=== PATIENT | female | born 1980 | race Hispanic/Latino ===

== ENCOUNTER 2019-10-27 16:30 | Outpatient (CLI) | payer OTHER, SELFPAY ==
--- NOTE | ~2019-10-27 | XR_ITS ---
EXAMINATION: XR chest 2V DATE: 10/27/2019 16:43 INDICATION: Cough. Chest congestion. TECHNIQUE: Frontal and lateral views of the chest were obtained. COMPARISON: CT abdomen and pelvis 01/16/2016 FINDINGS: There is mild atelectasis at left lung base. No pleural effusion or pneumothorax. The heart size is normal. IMPRESSION: 1. Mild atelectasis at left lung base. Reviewed, dictated and finalized at location A.
== END 2019-10-27 16:31 | disposition home or self-care (01) ==
LOC: ANHBWCIMG 16:34
PROVIDERS: PCP Family Medicine; Visit Provider Family Medicine
DX: R05 Cough (principal); R91.8 Other nonspecific abnormal finding of lung field
CPT/HCPCS: 71046

== ENCOUNTER → 2020-02-07 16:19 | Outpatient (CLI) | payer OTHER, SELFPAY ==
--- NOTE | ~2020-02-07 | XR_ITS ---
XR chest 2V DATE: 02/07/2020 16:37 INDICATION: Chest pain TECHNIQUE: PA and lateral views COMPARISON: 10/27/2019 PA and lateral chest FINDINGS: Normal heart size. No hilar or mediastinal enlargement. No pulmonary infiltrate or consolid ation, pleural effusion or pulmonary vascular congestion or pneumothorax. Included skeletal structures are unremarkable. IMPRESSION: No active cardiopulmonary disease Reviewed, dictated and finalized at location A.
== END ==
PROVIDERS: PCP Family Medicine; Visit Provider Family Medicine
DX: R07.89 Other chest pain (principal)
CPT/HCPCS: 71046

== ENCOUNTER 2020-04-20 14:36 | Outpatient (CLI) | payer OTHER, SELFPAY ==
[2020-04-23 21:32] LABS: Immunoglobulin E 3 kU/L (<=114)
[2020-04-24 15:33] LABS: Immunoglobulin G, Serum 1158 mg/dL (600-1640); Immunoglobulin G1 513 mg/dL (382-929); Immunoglobulin G2 434 mg/dL (241-700); Immunoglobulin G3 80 mg/dL (22-178); Immunoglobulin G4 27.8 mg/dL (4.0-86.0)
--- NOTE | 2020-05-01 12:52 | WPDPFTINT ---
PFT Interpretation PFT Interpretation: DOS: 04/20/2020 REQUESTING: Dr Marie REASON FOR TESTING: shortness of breath PULMONARY FUNCTION TESTS Results are reliable. Spirometry: FEV1 111%, FVC 111 %, normal FEV1%. [id number]% is 79%. There is no significant change after bronchodilator Lung volumes: TLC 122% mild hyperinflation. RV 124% mild air trapping. Normal airway resistance. Diffusion: DLCO 101% normal. Flow volume loop: Normal. IMPRESSION: Normal spirometry, mild hyperinflation and air trapping which are consistent with an obstructive process, normal diffusion. No change with bronchodilator. Yun Marie MD
--- NOTE | 2020-05-01 12:56 | WPDSIXMINUTE ---
Six Minute Walk Six Minute Walk: DOS: 04/20/2020 REQUESTING: Dr Marie REASON FOR TESTING: shortness of breath SIX MINUTE WALK This test was conducted per ATS guidelines. The initial saturation was 98% and pulse 74. The patient walked for 6 minutes without stopping, for a distance of 1400 ft/ 426 m. Final saturation 99%. Pulse was 93. IMPRESSION: Normal walk study without need for supplemental oxygen with exertion.
== END 2020-04-20 14:37 | disposition home or self-care (01) ==
PROVIDERS: PCP Family Medicine; Visit Provider Internal Medicine Critical Care Medicine
DX: J45.909 Unspecified asthma, uncomplicated (principal); B99.9 Unspecified infectious disease; R06.02 Shortness of breath
CPT/HCPCS: 36415; 82784; 82785; 82787; 94060; 94618; 94726; 94729; 95012

== ENCOUNTER 2021-06-03 15:28 | Outpatient (CLI) | payer OTHER, SELFPAY ==
[2021-06-03 15:47] LABS: Basophils Percent Auto 0.4 % (0.2-1.2); Eosinophils Absolute Auto 0.1 K/mm3 (0-0.3); Eosinophils Percent Auto 0.8 % (0-4.4); Hematocrit 35.5 % (37.0-47.0); Hemoglobin 10.9 g/dL (12.0-15.0); Immature Granulocyte Absolute 0.02 K/mm3 (0.00-0.031); Immature Granulocyte Percent A 0.3 % (0-0.5); Lymphocytes Absolute Auto 2.79 K/mm3 (0.9-3.2); Lymphocytes Percent Auto 36.8 % (18.3-44.2); Mean Corpuscular HGB Conc 30.7 g/dl (32-36); Mean Corpuscular Hemoglobin 23.9 pg (26-34); Mean Corpuscular Volume 77.7 fl (80-100); Mean Platelet Volume 8.7 fl (7.4-10.4); Monocytes Absolute Auto 0.5 K/mm3 (0.1-0.6); Monocytes Percent Auto 6.9 % (2.6-8.5); Neutrophils Absolute Auto 4.2 K/mm3 (1.3-6.7); Neutrophils Percent Auto 54.8 % (45.5-73.1); Platelet Count Result 484 k/mm3 (150-375); Red Blood Count 4.57 M/mm3 (4.2-5.4); Red Cell Distribution Width 15.6 % (11.5-14.5); White Blood Count 7.6 K/mm3 (4.5-10.0)
[2021-06-03 16:39] LABS: Anion Gap 11 mmol/L (8-16); Blood Urea Nitrogen 14 mg/dL (7-17); Carbon Dioxide 23 mmol/L (22-30); Chloride 105 mmol/L (98-107); Estimated Glomerular Filt Rate > 60; Glucose 96 mg/dL (65-110); Potassium 3.7 mmol/L (3.4-5.0); Sodium 139 mmol/L (137-145)
[2021-06-03 17:38] LABS: Iron 136 ug/dL (37-170)
[2021-06-03 17:47] LABS: Percent Iron Saturation 37 % (20-50)
[2021-06-03 18:14] LABS: Ferritin 8.18 ng/mL (6.24-137)
[2021-06-03 18:15] LABS: Folic Acid 9.1 ng/mL (2.76->20); Vitamin B12 > 1000.0 pg/mL (239-931)
== END 2021-06-03 15:29 | disposition home or self-care (01) ==
LOC: ANHLAB 15:29
PROVIDERS: Visit Provider Internal Medicine Hematology & Oncology
DX: D63.8 Anemia in other chronic diseases classified elsewhere (principal)
CPT/HCPCS: 36415; 80048; 82607; 82728; 82746; 83540; 83550; 85025

== ENCOUNTER → 2022-12-30 08:04 | Outpatient (CLI) | payer OTHER, SELFPAY ==
--- NOTE | ~2022-12-30 | US_ITS ---
EXAMINATION: US pelvic complete DATE: 12/30/2022 08:32 INDICATION: Excessive and frequent menstruation. Comparison:No prior studies for comparison. TECHNIQUE: Multiple transabdominal sonographic images of the pelvis performed. FINDINGS: The uterus measures 10.5 x 4.8 x 6.4 cm. There is an IUD in the endometrium. The endometria l complex measures 7 mm. The right ovary measures 3.8 x 2.2 x 2.8 cm and the left ovary measures 2.8 x 1.8 x 2.8 cm. There ar e small follicles in each ovary. Normal doppler signal in both ovaries. There is no free fluid in the pelvis. There are no abnormal masses seen on either side. IMPRESSION: 1. Enlarged uterus. Reviewed, dictated and finalized at location L. IMPRESSION: 1. Enlarged uterus.
== END ==
PROVIDERS: Visit Provider Family Medicine
DX: N92.0 Excessive and frequent menstruation with regular cycle (principal); N85.2 Hypertrophy of uterus
CPT/HCPCS: 76856

== ENCOUNTER → 2023-03-09 07:09 | Outpatient (CLI) | payer OTHER, SELFPAY ==
--- NOTE | ~2023-03-09 | MM_ITS ---
EXAMINATION: MM screening elizabeth BI w haider HISTORY: Screening mammogram, family history of breast cancer in her sister. TECHNIQUE: Craniocaudal and mediolateral oblique 3-D tomosynthesis images were obtained and synthetic 2-D images were generated. CAD analysis was submitted and interpreted. COMPARISON: None, baseline BREAST PARENCHYMAL COMPOSITION: The breasts are heterogeneously dense, which may obscure small masses . FINDINGS: RIGHT BREAST: There is architectural distortion in the posterior third of the outer breast 5.5 cm fro m the nipple. LEFT BREAST: No suspicious mass, calcification, or architectural distortion are identified to suggest malignancy. IMPRESSION: 1. Right breast architectural distortion. 2. Additional mammographic views and possible breast ultrasound are recommended. BI-RADS Category 0: Incomplete: Needs additional imaging evaluation. Reviewed, dictated and finalized at location A. IMPRESSION: 1. Right breast architectural distortion. 2. Additional mammographic views and possible breast ultrasound are recommended . BI-RADS Category 0: Incomplete: Needs additional imaging evaluation.
== END ==
PROVIDERS: PCP Family Medicine; Visit Provider Family Medicine
DX: Z12.31 Encounter for screening mammogram for malignant neoplasm of breast (principal); R92.8 Other abnormal and inconclusive findings on diagnostic imaging of breast
CPT/HCPCS: 77063; 77067

== ENCOUNTER → 2023-04-14 07:51 | Outpatient (CLI) | payer OTHER, SELFPAY ==
--- NOTE | ~2023-04-14 | MM_ITS ---
Corrected Report Order # associated 04/15/2023 SLJ This report was recreated on 04/15/2023. Original report was signed by Som Tong M.D. on 04/14/2023 9:17 CDT EXAMINATION: MM diagnostic elizabeth RT w haider; US breast RT limited HISTORY: Right breast architectural distortion on screening mammogram TECHNIQUE: Additional 3-D tomosynthesis images of the right breast were performed and synthetic 2-D images were generated. CAD analysis was submitted and interpreted. High resolution limited right breast ultrasound was performed. COMPARISON: 03/09/2023 BREAST PARENCHYMAL COMPOSITION: The breasts are heterogeneously dense, which may obscure small masses. FINDINGS: MAMMOGRAPHIC FINDINGS: There is an area of persistent architectural distortion in the posterior third of the lower-outer breast at the 8:00 location, 9 cm from the nipple. No suspicious calcification or definite associated mass are identified. ULTRASOUND: There is no evidence of focal abnormal solid or cystic mass in the vicinity of the mammographic finding in question. IMPRESSION: 1. Persistent right breast architectural distortion without sonographic correlate. 2. Tomosynthesis guided biopsy is recommended. BI-RADS category 4, suspicious findings. Reviewed, dictated and finalized at location A. MTDD IMPRESSION: 1. Persistent right breast architectural distortion without sonographic correla te. 2. Tomosynthesis guided biopsy is recommended. BI-RADS category 4, suspicious findings.
== END ==
PROVIDERS: PCP Family Medicine; Visit Provider Family Medicine
DX: R92.8 Other abnormal and inconclusive findings on diagnostic imaging of breast (principal)
CPT/HCPCS: 76642; 77061; 77065; G0279

== ENCOUNTER 2023-04-28 15:46 | Outpatient (CLI) | payer OTHER, SELFPAY ==
[2023-04-28 15:58] LABS: Basophils Absolute Auto 0.1 K/mm3 (0.0-0.1); Basophils Percent Auto 0.5 % (0.2-1.2); Eosinophils Absolute Auto 0.1 K/mm3 (0-0.3); Eosinophils Percent Auto 0.6 % (0-4.4); Hematocrit 42.7 % (37.0-47.0); Hemoglobin 13.9 g/dL (12.0-15.0); Immature Granulocyte Absolute 0.02 K/mm3 (0.00-0.031); Immature Granulocyte Percent A 0.2 % (0-0.5); Lymphocytes Absolute Auto 3.28 K/mm3 (0.9-3.2); Mean Corpuscular HGB Conc 32.6 g/dl (32-36); Mean Corpuscular Hemoglobin 26.9 pg (26-34); Mean Corpuscular Volume 82.6 fl (80-100); Mean Platelet Volume 8.8 fl (7.4-10.4); Monocytes Absolute Auto 0.6 K/mm3 (0.1-0.6); Monocytes Percent Auto 5.9 % (2.6-8.5); Neutrophils Absolute Auto 6.6 K/mm3 (1.3-6.7); Neutrophils Percent Auto 61.8 % (45.5-73.1); Platelet Count Result 413 k/mm3 (150-375); Red Blood Count 5.17 M/mm3 (4.2-5.4); Red Cell Distribution Width 13.6 % (11.5-14.5); White Blood Count 10.6 K/mm3 (4.5-10.0)
[2023-04-28 16:34] LABS: Iron 63 ug/dL (37-170)
[2023-04-28 16:43] LABS: Percent Iron Saturation 18 % (20-50)
[2023-04-28 17:43] LABS: Folic Acid 9.6 ng/mL (2.76->20)
== END 2023-04-28 15:47 | disposition home or self-care (01) ==
LOC: ANHLAB 15:48
PROVIDERS: PCP Family Medicine; Visit Provider Internal Medicine Hematology & Oncology
DX: D64.9 Anemia, unspecified (principal)
CPT/HCPCS: 36415; 82607; 82728; 82746; 83540; 83550; 85025

== ENCOUNTER 2023-07-07 13:47 | Outpatient (CLI) | payer OTHER, SELFPAY ==
--- NOTE | ~2023-07-07 | MR_ITS ---
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 No sonog raphic correlate is identified. TECHNIQUE: MRI of the breasts perform using standard protocol pre-and post IV contrast with the follo wing sequences: Axial T2 STIR, axial T1, axial vibrant T1 with fat suppression precontrast and multip hasic postcontrast. 20 cc of MultiHance administered intravenously. COMPARISON: Comparison to multiple prior studies sequentially, with oldest reviewed study dated 03/09. FINDINGS: There are no abnormalities on the precontrast sequences. There is moderate background paren chymal enhancement. In the lower outer quadrant of the right breast at 8:00, middle third there is an irregular shaped area of nonmasslike enhancement with rapid washout, measuring 2 x 1.7 x 1.5 cm. The re are additional scattered areas of nonmass-like enhancement throughout the right breast, likely casey kground. There are normal-appearing right axillary lymph nodes. No suspicious axillary or internal ma mmary lymph nodes. LEFT BREAST: No signal abnormalities on precontrast sequences. There is moderate background parenchy mal enhancement. At 1:00 in the upper outer quadrant anteriorly there is an 11 x 9 x 6 mm irregular s haped mass. In the lower outer quadrant of the left breast at 6:00, middle third there is a 9 x 7 x 1 1 mm mass with rapid washout kinetics. In the lower inner quadrant of the left breast at 9:00 anterio rly there is an 8 mm mass with rapid washout. In the lower inner quadrant of the left breast at 6:00 anteriorly there is a 7 mm mass with rapid washout. No at 8:00 in the lower inner quadrant anteriorly there is a 6 mm mass with rapid washout. IMPRESSION: 1: Right breast: Irregular shaped nonmasslike enhancement at 8:00, middle third measuring up to 2 cm . 2: Left breast: Multiple abnormally enhancing left breast masses described above in greater detail. Recommendation: Recommend diagnostic bilateral mammogram with complete bilateral breast ultrasound. BI-RADS CATEGORY 0 - INCOMPLETE STUDY, NEED ADDITIONAL IMAGING EVALUATION. Reviewed, dictated and finalized at location B. E STACKER HAND IMPRESSION: 1: Right breast: Irregular shaped nonmasslike enhancement at 8:00, middle thir d measuring up to 2 cm. 2: Left breast: Multiple abnormally enhancing left breast masses described abo ve in greater detail. Recommendation: Recommend diagnostic bilateral mammogram with complete bilatera l breast ultrasound. BI-RADS CATEGORY 0 - INCOMPLETE STUDY, NEED ADDITIONAL IMAGING EVALUATION.
== END 2023-07-07 13:48 | disposition home or self-care (01) ==
PROVIDERS: Visit Provider Physician Assistant Surgical
DX: R92.8 Other abnormal and inconclusive findings on diagnostic imaging of breast (principal); R92.2 Inconclusive mammogram
CPT/HCPCS: 77049; A9577; C8908

== ENCOUNTER → 2023-07-29 07:55 | Outpatient (CLI) | payer OTHER, SELFPAY ==
--- NOTE | ~2023-07-29 | MMUS_ITS ---
EXAMINATION: US breast BI complete, MM diagnostic elizabeth BI w haidre HISTORY: History of bilateral breast masses seen on MRI examination. Previous benign right breast bio psy. TECHNIQUE: Additional 3-D tomosynthesis images of the breasts were performed and synthetic 2-D images were generated. CAD analysis was submitted and interpreted. High resolution bilateral complete breas t ultrasound was performed. COMPARISON: Comparison to multiple prior studies sequentially, with oldest reviewed study dated 03/09. BREAST PARENCHYMAL COMPOSITION: Breast composed of scattered areas of fibroglandular density FINDINGS: MAMMOGRAPHIC FINDINGS: Right breast: There is a persistent mass in the lower outer quadrant of the right breast, at the junc tion of the middle-posterior third of the breast, with surrounding architectural distortion. There is an associated tissue marker presumably from previous recent benign biopsy. No other masses, calcific ations or suspicious architectural distortion are seen. Left breast: There is a small 6 mm mass in the slightly upper inner quadrant of the left breast, midd le third with circumscribed margins. No other suspicious masses or architectural distortion are seen. ULTRASOUND: Complete bilateral US of all 4 quadrants of the breasts and retroareolar region was reviewed. Right breast: At 3:00 near the areola there is a 3 mm cyst. At 6:00, 5 cm from the nipple, there is a 6 mm cyst. At 8:00, 6 cm from the nipple there is a slightly irregular shaped hypoechoic mass with h eterogeneous internal echotexture measuring 6 x 6 x 8 mm. No significant posterior features or diversity intern al vascularity. At 10:00, 4 cm from the nipple there is a 3 mm cyst. At 11:00, 3 cm from the nipple t here is a lobulated hypoechoic 5 mm mass with mixed posterior attenuation and no internal vascularity . Left breast: At 2:00, 6 cm from the nipple there is a 5 mm septated cyst. At 11:00, 3 cm from the nip ple there is a 3 mm cyst. Near the nipple there is an oval hypoechoic mass measuring 5 mm,, not well characterized due to surrounding echogenic soft tissue. IMPRESSION: 1. Right breast: Ultrasound-guided right breast biopsy of 8 mm mass at 8:00, 6 cm from the nipple. Th is likely corresponds to the abnormally enhancing mass seen on recent MRI. Additionally, ultrasound-g uided biopsy of lobulated hypoechoic 5 mm mass at 11:00, 3 cm from the nipple in the right breast is recommended. BI-RADS Category 4 2. Left breast: Poorly defined hypoechoic 5 mm mass of the left breast near the nipple. This likely c orresponds to mass seen on MRI located at the 1:00 position anteriorly. MRI guided biopsy of this mas s recommended given the masses not well characterized or visualized by ultrasound or mammography. BI- RADS Category 4. Reviewed, dictated and finalized at location A. SER AUTOMATIC IMPRESSION: 1. Right breast: Ultrasound-guided right breast biopsy of 8 mm mass at 8:00, 6 cm from the nipple. This likely corresponds to the abnormally enhancing mass se en on recent MRI. Additionally, ultrasound-guided biopsy of lobulated hypoechoi c 5 mm mass at 11:00, 3 cm from the nipple in the right breast is recommended. BI-RADS Category 4 2. Left breast: Poorly defined hypoechoic 5 mm mass of the left breast near the nipple. This likely corresponds to mass seen on MRI located at the 1:00 positi on anteriorly. MRI guided biopsy of this mass recommended given the masses not well characterized or visualized by ultrasound or mammography. BI-RADS Category 4.
== END ==
PROVIDERS: PCP Surgery; Visit Provider Surgery
DX: N63.13 Unspecified lump in the right breast, lower outer quadrant (principal); N63.11 Unspecified lump in the right breast, upper outer quadrant; N63.21 Unspecified lump in the left breast, upper outer quadrant
CPT/HCPCS: 76641; 77062; 77066; G0279

== ENCOUNTER 2023-07-30 10:29 | Emergency (ER) | payer OTHER, SELFPAY ==
[2023-07-30 10:40] VITALS: BP 134/68; PULSE 69; RESP 16; TEMP 36.9; O2SAT 96
--- NOTE | 2023-07-30 10:47 | ED.URI ---
HPI - URI/Sore Throat General Chief Complaint: Upper Respiratory Infection Stated Complaint: Cough/Headache Time Seen by Provider: 07/30/23 10:47 Source: patient, RN notes reviewed and old records reviewed Mode of arrival: ambulatory Limitations: no limitations History of Present Illness HPI Narrative: 43-year-old female presents to the [facility] with complaints of a cough and headache that started 1 week ago. Has taken Tylenol with no other treatment prior to arrival. Denies fevers. Denies chest pain or abdominal pain. Onset (ago): week(s) (1) Related Data Home Medications Medication Instructions Recorded Confirmed ascorbate calcium (vitamin C) 500 1 g PO DAILY 06/22/20 05/16/22 mg tablet cetirizine 10 mg capsule (All Day 10 mg PO DAILY 06/22/20 05/16/22 Allergy (cetirizine)) ferrous fumarate 325 mg (106 mg 325 mg PO DAILY 06/22/20 05/16/22 iron) tablet Allergies Allergy/AdvReac Type Severity Reaction Status Date / Time diphenhydramine AdvReac Fainting Verified 07/30/23 15:30 [From Benadryl] Review of Systems Review of Systems: All systems reviewed & are unremarkable except as noted in HPI and below Constitutional: Constitutional: Reports no additional constitutional complaints Eyes: Eyes: Reports no additional eye complaints ENT: Reports system reviewed and no additional complaints, except as documented Cardiovascular: Cardiovascular: Reports no additional cardiovascular complaints, Denies chest pain and Denies dyspnea Respiratory: Respiratory: Reports as per HPI, Denies chest congestion, Reports cough and Denies dyspnea Gastrointestinal: Gastrointestinal: Reports no additional gastrointestinal complaints, Denies abdominal pain, Denies nausea and Denies vomiting Musculoskeletal: Musculoskeletal: Reports no additional musculoskeletal complaints Integumentary/Breasts: Skin/Breast: Reports system reviewed and no additional complaints, except as docu Neurologic: Reports system reviewed and no additional complaints, except as documented Psychiatric: Psychiatric: Reports no additional psychiatric complaints Allergic/Immunologic: Allergic/Immunologic: Reports no additional allergic/immunologic complaints PMFSH Past Medical History Medical History Asthma Hypersomnia Recurrent infections Shortness of breath on exertion Surgical History Surgical History H/O section Family History Family History Sibling Family history of thyroid disease Family history of malignant neoplasm of breast in first degree relative Anemia Father Diabetes mellitus Family history of cardiovascular disease Mother Family history of osteoporosis Asthma Patient's mother is in good health Family history of arthritis Social History Social History Smoking status: Never smoker Second hand tobacco smoke exposure: No Alcohol intake: never Substance use: never Substance use type: does not use Lack of Transportation: No Lack of Food: Never True Current Housing: I Have Housing Concerned About Future Housing: No Difficulty Paying Gas/Electric Bills: No Difficulty Paying for Meds: No Currently Unemployed: No Education: Associate Degree Difficulty w/ Childcare or Family Care: No Living arrangements: with family Gender identity (if verbalized by the patient): Female Spiritual care concerns: No Comments At the time of my signature, I reviewed and agree with the nursing past medical, surgical, social, and family history. There is no relevant family history pertinent to the patient complaint. Exam Const: General: cooperative, healthy appearing, comfortable, no acute distress, well developed, alert and well nourished Nutritional Appearance: well nourished
== END 2023-07-30 11:27 | disposition home or self-care (01) ==
PROVIDERS: Emergency Provider Nurse Practitioner; PCP Family Medicine
DX: J40 Bronchitis, not specified as acute or chronic (principal)
CPT/HCPCS: 99213; G0463

== ENCOUNTER 2023-08-29 08:07 | Emergency (ER) | payer OTHER, SELFPAY ==
[2023-08-29 08:16] VITALS: BP 131/78; PULSE 92; RESP 20; TEMP 36.4; O2SAT 97
--- NOTE | 2023-08-29 08:21 | ED.EAR ---
HPI - Ear Problem General Chief complaint: Ear Stated complaint: ear pain Time Seen by Provider: 08/29/23 08:21 Source: patient, RN notes reviewed and old records reviewed Mode of arrival: ambulatory Limitations: no limitations History of Present Illness HPI Narrative: 43 year old female presents to [facility] with complaints of left ear pain for 4 days. Patient states she has taken Tylenol and has also applied warmth to her ear as comfort measures but ear is throbbing. Patient reports that she did have Bronchitis and continues to have some cough, denies any shortness of breath or any wheezing. Patient reports that she had breast biopsies yesterday to both breasts and can only take Tylenol for her discomfort. MD Complaint: ear pain Location: left ear Duration: constant Severity: severe Relieving factors: nothing Exacerbating factors: palpation Discharge from ear: Reports no Treatment prior to arrival: other (Tylenol and heat) Related Data Home Medications Medication Instructions Recorded Confirmed ascorbate calcium (vitamin C) 500 1 g PO DAILY 06/22/20 05/16/22 mg tablet ferrous fumarate 325 mg (106 mg 325 mg PO DAILY 06/22/20 05/16/22 iron) tablet Allergies Allergy/AdvReac Type Severity Reaction Status Date / Time diphenhydramine AdvReac Fainting Verified 07/30/23 15:30 [From Benarmanil] Review of Systems Review of Systems: CONSTITUTIONAL: Denies malaise, chills, sweats, or fever. EYES: Denies visual changes, redness, or discharge. ENT: Reports no rhinorrhea, congestion, sinus pain,positive for left otalgia and no sore throat. CARDIOVASCULAR: Denies chest pain, palpitations, or edema. RESPIRATORY: Reports cough.? Denies dyspnea. GASTROINTESTINAL: Denies abdominal pain, nausea, vomiting, diarrhea SKIN: Denies rash or itching. MUSCULOSKELETAL: Denies myalgia. NEUROLOGIC: Denies headache. All systems reviewed & are unremarkable except as noted in HPI and below PMFSH Past Medical History Medical History Asthma Hypersomnia Recurrent infections Shortness of breath on exertion Surgical History Surgical History (Updated 08/29/23 @ 09:25 by Shital Diaz NP) H/O section Status post bilateral breast biopsy Family History Family History Sibling Family history of thyroid disease Family history of malignant neoplasm of breast in first degree relative Anemia Father Diabetes mellitus Family history of cardiovascular disease Mother Family history of osteoporosis Asthma Patient's mother is in good health Family history of arthritis Social History Social History Smoking status: Never smoker Second hand tobacco smoke exposure: No Alcohol intake: never Substance use: never Substance use type: does not use Lack of Transportation: No Lack of Food: Never True Current Housing: I Have Housing Concerned About Future Housing: No Difficulty Paying Gas/Electric Bills: No Difficulty Paying for Meds: No Currently Unemployed: No Education: Associate Degree Difficulty w/ Childcare or Family Care: No Living arrangements: with family Gender identity (if verbalized by the patient): Female Spiritual care concerns: No Comments At time of signature, agree with nursing past medical, surgical, social and family history. There is no relevant family history pertinent to the presenting complaint Exam Narrative: GENERAL: Well-appearing, well-nourished, and in no acute distress. HEAD: Normocephalic EYES: PERRLA, conjunctivae clear ENT: Nares clear, turbinates edematous and erythematous, clear discharge. Mucous membranes moist.Left TM red and canal red and irritated. Right TM pearly peres with dull light reflex ; left tragal tenderness. Oropharynx erythematous without lesions.
== END 2023-08-29 08:41 | disposition home or self-care (01) ==
PROVIDERS: Emergency Provider Registered Nurse; PCP Family Medicine
DX: H66.92 Otitis media, unspecified, left ear (principal); H60.312 Diffuse otitis externa, left ear; J45.909 Unspecified asthma, uncomplicated
CPT/HCPCS: 99213; G0463

== ENCOUNTER 2023-09-15 11:47 | Outpatient (CLI) | payer OTHER, SELFPAY ==
[2023-09-15 12:02] LABS: Kit Draw Collected
== END 2023-09-15 11:48 | disposition home or self-care (01) ==
LOC: ANHLAB 11:48
PROVIDERS: PCP Family Medicine; Visit Provider Internal Medicine Hematology & Oncology
DX: C50.919 Malignant neoplasm of unspecified site of unspecified female breast (principal)
CPT/HCPCS: 36415

== ENCOUNTER 2023-10-20 09:03 | Outpatient (CLI) | payer OTHER, SELFPAY ==
--- NOTE | ~2023-10-20 | MM_ITS ---
MM_MAGSEEDLT_MG DATE: 10/20/2023 12:02 INDICATION: Neck CT placement at biopsy marker at 9:00 left breast TECHNIQUE: The purpose of the procedure, technique and potential locations including bleeding and hem atoma were discussed with the patient. The patient verbalized understanding and gave written consent. Timeout procedure was performed. The left breast was placed in compression mediolateral position with biopsy grid over the area of int erest. The skin was prepared with sterile Betadine. 1% lidocaine local anesthetic was administered to the skin and underlying subcutaneous tissues. Subsequently, an introductory needle for the mag seed was placed adjacent to the marker, guided by mediolateral and craniocaudal mammographic exposures. On ce the needle is immediately contiguous with the marker, mag seed was deployed and the needle withdra wn. Final ML and CC projections reveal the mag seed in the contiguity with the marker in the ML and CC vi ews. The patient tolerated procedure well, without complaint or apparent complication. IMPRESSION: Mammographically guided mag seed placement at marker at left breast 9:00 position Reviewed, dictated and finalized at Location A. Reviewed, dictated and finalized at location A. 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
--- NOTE | ~2023-10-20 | US_ITS ---
US_MAGSEEDRT_US DATE: 10/20/2023 11:18 INDICATION: Mag seed placement at 8:00 6 cm from nipple TECHNIQUE: The purpose of the procedure was explained to the patient. Technique was discussed, includ ing potential complications including bleeding and bruising. The patient indicated understanding and gave verbal and written consent. Timeout procedure was performed. The skin of the right breast was prepared with sterile Betadine. 1% lidocaine local anesthetic was ad ministered to the skin and underlying subcutaneous tissues. Subsequently, a mag seed introductory nee dle was placed at the marker site with ultrasound guidance and the mag seed was deployed and the need le withdrawn. The patient was very cooperative and tolerated the procedure well, without complaint or apparent comp lication. IMPRESSION: Successful ultrasound guided mag seed placement at right breast 8:00 position 6 cm from n ipple Reviewed, dictated and finalized at Location A. Reviewed, dictated and finalized at location A. H BEAMER IMPRESSION: Successful ultrasound guided mag seed placement at right breast 8:0 0 position 6 cm from nipple
--- NOTE | ~2023-10-20 | MM_ITS ---
EXAMINATION: MM post biopsy invasive RT HISTORY: Post mag seed placement, 8:00 TECHNIQUE: ML, CC and exaggerated lateral CC use of the right breast were performed. FINDINGS: Mag seed is placed in immediate proximity to biopsy marker in the posterior lower outer rig ht breast. IMPRESSION: Successful mag seed placement at biopsy marker in the posterior lower outer right breast at approxima tely 8:00 position Reviewed, dictated and finalized at location A. 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
== END 2023-10-20 09:04 | disposition home or self-care (01) ==
PROVIDERS: PCP Family Medicine; Visit Provider Physician Assistant Surgical
DX: D05.01 Lobular carcinoma in situ of right breast (principal)
CPT/HCPCS: 19281; 19285; A4648

== ENCOUNTER 2023-11-02 15:26 | Outpatient (CLI) | payer OTHER, SELFPAY ==
[2023-11-02 15:50] LABS: Hematocrit 41.8 % (37.0-47.0); Hemoglobin 13.5 g/dL (12.0-15.0)
== END 2023-11-02 15:27 | disposition home or self-care (01) ==
LOC: ANHSURGERY 15:30
PROVIDERS: Anesthesiology; PCP Family Medicine; Visit Provider Surgery
DX: D64.9 Anemia, unspecified (principal); Z01.818 Encounter for other preprocedural examination
CPT/HCPCS: 36415; 85014; 85018

== ENCOUNTER 2023-11-04 01:45 | Day surgery (SDC) | payer OTHER, SELFPAY ==
[2023-10-28 12:55] VITALS: BMI 39.7
--- NOTE | 2023-10-28 13:00 | PC.NURSE ---
Report to the Outpatient Waiting Room, entrance under the green pavilion located off [facility], at time 6:30 on date 11/04/23. Planned Procedure Time: 8:30. Time changes happen often and if your time is changed the preop area will call you the afternoon before. - You and your visitor will be asked to self-screen and do not enter if you have any COVID symptoms. - A mask is optional within the hospital at this time. Patients may have clear liquids (water, carbonated beverages, clear teas, apple juice) until 3 hours prior to surgery with a maximum of 20 ounces. - No food from midnight until time of surgery Take the following medications with a SIP of water the morning of surgery: SERTRALINE DO NOT STOP ANY OF YOUR OTHER PRESCRIPTION MEDICATIONS PRIOR TO SURGERY ?EXCEPT THE FOLLOWING Medications to discontinue per physician: VITAMINS Date to take last dose: 10/31/23 Please no make-up, nail cypriot, hairspray, perfume, deodorant, or body powder the day of surgery. No jewelry (including any body piercings) or valuables the day of surgery, leave them at home. Please take a shower or bath the night before, or the morning of, surgery with an antibacterial soap. Wear comfortable, loose fitting clothing. - Jewelry must be removed prior to entering the operating room. Rings and piercings that are not removed may be cut off. - The hospital will not accept responsibility for valuables. - Please leave all valuables, including medications, at home the day of surgery. If you are going home after surgery, a licensed driver license agent must drive you home. - NO public transportation without another adult if you receive anesthesia. - We recommend that an adult stay with you for 24 hours following discharge. - We also recommend that you do not drive, make important decision, drink alcoholic beverages, or take any drugs that were not prescribed by your health care provider for at least 24 hours after your discharge time. Follow any additional instructions given to you from your surgeon. If you or anyone in your household have experienced Covid symptoms in the past week, please notify your surgeon or the nurse liaison at the phone number below for possible testing. Telephone instructions given to ALONA CANALES and asked if any additional questions and then verbalized understanding. Patient advised to call surgeon office or pre surgery nurse liaison [phone] if any additional questions.
[2023-11-04] VITALS (10 sets, daily range): BP systolic 106–147; BP diastolic 46–84; PULSE 80–94; RESP 16–22; TEMP 36.2–36.4; O2SAT 93–100
--- NOTE | ~2023-11-04 | MM_ITS ---
MM_FAXITRON_MG 11/04/2023 09:38 Indication: Status post surgical biopsy Procedure: Single view of the left breast specimen Comparison: 10/20/2023 Findings: Specimen contains magseed and coil markers of interest. Impression: 1: Specimen contains the markers of interest. Please refer to procedural report for details. Reviewed, dictated and finalized at location A. Impression: 1: Specimen contains the markers of interest. Please refer to procedural report for details.
--- NOTE | ~2023-11-04 | MM_ITS ---
MM_FAXITRON_MG 11/04/2023 10:06 Indication: Status post surgical excisional biopsy Procedure: Single biopsy specimen of the left breast Comparison: Specimen mammogram dated 10/20/2023 Findings: Tissue marker and magseed are visualized within the specimen. Impression: 1: Breast specimen contains tissue marker and magseed of interest. Please refer to procedural report for details. Reviewed, dictated and finalized at location A. Impression: 1: Breast specimen contains tissue marker and magseed of interest. Please refer to procedural report for details.
--- NOTE | 2023-11-04 07:06 | WPDHPUPDATE1 ---
History and Physical Update Update Date/Time: 11/04/23 07:06 Plan for excisional biopsy with magseed localization of both right breast 8 o'clock position 9 cm from the nipple which is the LCIS/complex sclerosing lesion and the left breast 9 o'clock position mid depth which is the radial scar.? History and Physical has been reviewed, including an updated exam of the patient. There are NO changes in the patient's condition. Risks, benefits, and alternatives have been discussed and questions answered. Patient agrees to proceed with procedure.
[2023-11-04] MEDS: LACTATED RINGERS 1,000 ML 30 ML IV CONT ×2 (07:38→10:28)
--- NOTE | 2023-11-04 07:42 | WPDANESEPPF ---
Anes - Initial Pre Proc Eval Procedure: Operation Date: 11/04/23 08:30 Proposed Procedures p Bilateral Excisional Breast Biopsies with Mag Seed Localization - Tracy Whaley MD Date/Time: 11/04/23 07:42 Surgeon: Tracy Whaley MD Pre Op Diagnosis: Other specified disorders of breast Patient Data Age: 43 Gender: F Height: 1.63 m Weight: 107.4 kg Last Vital Signs Temp 97.2 F L 11/04/23 06:42 Pulse 85 11/04/23 06:42 Resp 18 11/04/23 06:42 BP 111/73 11/04/23 06:42 Pulse Ox 100 11/04/23 06:42 O2 Del Method Room Air 11/04/23 06:42 Allergies Allergy/AdvReac Type Severity Reaction Status Date / Time diphenhydramine AdvReac Intermediate Fainting Verified 11/04/23 07:14 [From [facility]] Home Medications Medication Instructions Recorded Confirmed Type ascorbate calcium (vitamin C) 500 1 g PO DAILY 06/22/20 11/04/23 History mg tablet ferrous fumarate 325 mg (106 mg 325 mg PO DAILY 06/22/20 11/04/23 History iron) tablet cholecalciferol (vitamin D3) 125 125 mcg PO DAILY #90 tabs 06/30/22 11/04/23 Rx mcg (5,000 unit) tablet inhalational spacing device #1 ea 07/30/23 Rx (Aerochamber MV spacer) sertraline 50 mg tablet (Zoloft) 50 mg PO DAILY #90 tabs 09/16/23 11/04/23 Rx tamoxifen 20 mg tablet 20 mg PO DAILY 10/07/23 11/04/23 History Patient hx anesthesia problems: none Family hx anesthesia problems: none Results Review: All pre-operative results and documents have been reviewed as part of the pre-operative evaluation. [facility] Past Medical History Medical History Asthma Hypersomnia Recurrent infections Shortness of breath on exertion Surgical History Surgical History (Updated 08/29/23 @ 09:25 by Shital Diaz NP) H/O section Status post bilateral breast biopsy Family History Family History Sibling Family history of thyroid disease Family history of malignant neoplasm of breast in first degree relative Anemia Father Diabetes mellitus Family history of cardiovascular disease Mother Family history of osteoporosis Asthma Patient's mother is in good health Family history of arthritis Social History Social History Smoking status: Never smoker Second hand tobacco smoke exposure: No Alcohol intake: never Substance use: never Substance use type: does not use Lack of Transportation: No Lack of Food: Never True Current Housing: I Have Housing Concerned About Future Housing: No Difficulty Paying Gas/Electric Bills: No Difficulty Paying for Meds: No Currently Unemployed: No Education: Associate Degree Difficulty w/ Childcare or Family Care: No Living arrangements: with family Gender identity (if verbalized by the patient): Female Spiritual care concerns: No Anes - Eval Final PreProcedure Day of Procedure 11/04/23 07:42 Patient weight: morbidly obese Heart: regular rate and rhythm Lungs: clear to auscultation Airway: Mallampati scale class II Neurological: alert and oriented Last oral intake: >/= 8 hours ASA classification: III Emergent: no Anesthetic plan: proceed Anesthesia type and monitoring: general LMA and ETT and standard monitoring Results Review: All pre-operative results and documents have been reviewed as part of the pre-operative evaluation. Informed Consent: The patient's anesthetic plan and its attendant risks and benefits were discussed with the patient/family/POA. Questions were solicited and answers provided to the satisfaction of the patient/family/POA.
[2023-11-04] MEDS: ACETAMINOPHEN 500 MG TABLET 1000 MG PO (08:01)
[2023-11-04] MEDS: ceFAZolin 2 GM/D5W 50 ML 2 GM/50 ML BAG IVPB (08:32)
[2023-11-04] MEDS: BUPIVACAINE/EPINEPHRINE 0.5% 30 ML VIAL 60 ML INFILTRATE (09:05)
--- NOTE | 2023-11-04 10:14 | P.OP_ITS ---
Procedure Note - Detailed Date of Procedure 11/04/23 Pre-op Diagnosis 1. 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 Left breast radial scar at 9 o'clock position mid depth ? Post-op Diagnosis Same Procedure Performed Bilateral breast excisional biopsies with magseed localization Surgeon Tracy Whaley MD Structural Iron Worker Nataly Garcia PA-C Anesthesia General Description of Procedure Patient was identified in the pre-operative area and brought to the OR suite. She underwent tumor localization previously by IR with magseed placement x2 for right and left breast lesions. She was laid supine in the operating table and sequential compression devices were applied. General anesthesia was induced without difficulties. Bilateral chest areas were prepped and draped in a sterile fashion. We started on right side. The sentimag probe was used to identify the area where the magseed was placed and a lateral IMF incision was made. Dissection was carried down through the subcutaneous tissue into the breast tissue. The lesion was identified with palpation and using sentimag probe, and a rim of normal breast tissue was excised along with the tumor as our lumpectomy specimen. Once the specimen was completely excised, it was oriented using surgical paint according to cable splicer helper instructions. The specimen was placed in the faxitron and 2 radiographs were obtained and sent to Radiology for radiographic confirmation of lesion, biopsy marker and magseed within the specimen. Once the radiographic confirmation was received, the wound was irrigated with saline and hemostasis was assured. The deep dermal layer was approximated using interrupted 3-0 vicryl followed by 4-0 monocryl for the skin. Attention was then turned to the left breast. The sentimag probe was used to identify the area where the magseed was placed and superior periareolar incision was made. Dissection was carried down through the subcutaneous tissue into the breast tissue. The lesion again was identified with palpation and using sentimag probe, and a rim of normal breast tissue was excised along with the tumor as our lumpectomy specimen. Once the specimen was completely excised, it was oriented using surgical paint according to cable splicer helper instructions. The specimen was placed in the faxitron and 2 radiographs were obtained and sent to Radiology for radiographic confirmation of lesion, biopsy marker and magseed within the specimen. Once the radiographic confirmation was received, the wound was irrigated with saline and hemostasis was assured. The deep dermal layer was approximated using interrupted 3-0 vicryl followed by 4-0 monocryl for the skin. Dermabond was applied followed by a surgical bra. Patient was awoken from anesthesia and taken to the recovery area in stable condition. All needles, instruments and sponge counts were correct as reported by the operating room staff. Patient tolerated the procedure well with no immediate complications. Nataly Garcia PA-C was required for positioning and retraction throughout the entire case. Estimated Blood Loss 10 Drains No Pathology Yes Complications No immediate complications Condition Stable Disposition PACU [facility] Billing Surgery - Charge Forward: Surgery Billing (CPT 29324 - R / 67619 - 59 L)
== END 2023-11-04 12:40 | disposition home or self-care (01) ==
PROVIDERS: PCP Family Medicine; Visit Provider Surgery
PROC: (CPT 19125; principal; 2023-11-04 08:30)
DX: D05.01 Lobular carcinoma in situ of right breast (principal); D24.2 Benign neoplasm of left breast; Z79.810 Long term (current) use of selective estrogen receptor modulators (SERMs); E66.01 Morbid (severe) obesity due to excess calories; Z68.41 Body mass index [BMI] 40.0-44.9, adult
CPT/HCPCS: 19125; 36415; 76098; 85014; 85018; 88305; 88307; 88342; A9270; J0690; J1100; J1170; J2250; J2371; J2405; J2704; J3010; J7120; Q9968

== ENCOUNTER 2023-11-12 13:08 | Outpatient (NON) | payer OTHER, SELFPAY | END 2023-11-12 13:09 | disposition home or self-care (01) | PROVIDERS: PCP Family Medicine; Visit Provider Surgery | DX: D05.11 Intraductal carcinoma in situ of right breast (principal); N60.11 Diffuse cystic mastopathy of right breast; N60.12 Diffuse cystic mastopathy of left breast | CPT/HCPCS: 88321 ==

== ENCOUNTER 2023-12-28 07:51 | Outpatient (CLI) | payer OTHER, SELFPAY ==
[2023-12-28 19:28] LABS: Alanine Aminotransferase 24 U/L (6-35); Albumin Level 4.3 g/dL (3.5-5.1); Alkaline Phosphatase 65 U/L (38-126); Anion Gap 10 mmol/L (4-12); Aspartate Amino Transferase 63 U/L (14-36); Bilirubin,Total 0.6 mg/dL (0.2-1.3); Blood Urea Nitrogen 13 mg/dL (7-17); Calcium 9.2 mg/dL (8.4-10.2); Carbon Dioxide 19 mmol/L (22-30); Chloride 112 mmol/L (98-107); Cholesterol 152 mg/dL (0-200); Estimated Glomerular Filt Rate > 60; Glucose 107 mg/dL (65-110); HDL Direct 31 mg/dL; Potassium 3.7 mmol/L (3.4-5.0); Sodium 141 mmol/L (137-145); Triglycerides 195 mg/dL (<150)
[2023-12-28 19:39] LABS: LDL Cholesterol Direct 88 mg/dL
[2023-12-28 20:19] LABS: Iron 119 ug/dL (37-170)
[2023-12-28 20:28] LABS: Percent Iron Saturation 39 % (20-50)
[2023-12-28 20:40] LABS: Vitamin D 25 Hydroxy 39.2 ng/mL
== END 2023-12-28 07:52 | disposition home or self-care (01) ==
LOC: ANHBWCLAB 07:52
PROVIDERS: PCP Family Medicine; Visit Provider Family Medicine
DX: D05.01 Lobular carcinoma in situ of right breast (principal); E53.8 Deficiency of other specified B group vitamins; E61.1 Iron deficiency; F41.9 Anxiety disorder, unspecified; G43.909 Migraine, unspecified, not intractable, without status migrainosus; J45.909 Unspecified asthma, uncomplicated; R79.89 Other specified abnormal findings of blood chemistry; Z00.00 Encounter for general adult medical examination without abnormal findings
CPT/HCPCS: 36415; 80053; 80061; 82306; 82607; 82728; 83540; 83550

== ENCOUNTER 2024-01-28 15:14 | Outpatient (CLI) | payer OTHER, SELFPAY ==
[2024-01-28 15:26] LABS: Basophils Percent Auto 0.5 % (0.2-1.2); Eosinophils Percent Auto 0.5 % (0-4.4); Hemoglobin 13.7 g/dL (12.0-15.0); Immature Granulocyte Absolute 0.01 K/mm3 (0.00-0.031); Immature Granulocyte Percent A 0.1 % (0-0.5); Lymphocytes Absolute Auto 3.13 K/mm3 (0.9-3.2); Lymphocytes Percent Auto 38.4 % (18.3-44.2); Mean Corpuscular HGB Conc 32.6 g/dl (32-36); Mean Corpuscular Hemoglobin 27.3 pg (26-34); Mean Corpuscular Volume 83.8 fl (80-100); Mean Platelet Volume 9.2 fl (7.4-10.4); Monocytes Absolute Auto 0.6 K/mm3 (0.1-0.6); Monocytes Percent Auto 7.2 % (2.6-8.5); Neutrophils Absolute Auto 4.4 K/mm3 (1.3-6.7); Neutrophils Percent Auto 53.3 % (45.5-73.1); Platelet Count Result 377 k/mm3 (150-375); Red Blood Count 5.01 M/mm3 (4.2-5.4); Red Cell Distribution Width 13.1 % (11.5-14.5); White Blood Count 8.2 K/mm3 (4.5-10.0)
[2024-01-28 15:30] LABS: Blood Urea Nitrogen 13 mg/dL (8-26); Carbon Dioxide 25 mmol/L (22-30); Chloride 105 mmol/L (98-109); Estimated Glomerular Filt Rate > 60; Glucose 93 mg/dL (70-105); Ionized Calcium (POC) 1.18 mmol/L (1.11-1.31); Potassium 3.6 mmol/L (3.5-4.9); Sodium 142 mmol/L (138-146)
[2024-01-28 16:31] LABS: Alanine Aminotransferase 34 U/L (6-35); Albumin Level 4.3 g/dL (3.5-5.1); Alkaline Phosphatase 71 U/L (38-126); Anion Gap 9 mmol/L (4-12); Aspartate Amino Transferase 27 U/L (14-36); Bilirubin,Total 0.3 mg/dL (0.2-1.3); Blood Urea Nitrogen 13 mg/dL (7-17); Carbon Dioxide 23 mmol/L (22-30); Chloride 109 mmol/L (98-107); Estimated Glomerular Filt Rate > 60; Glucose 91 mg/dL (65-110); Potassium 3.6 mmol/L (3.4-5.0); Sodium 141 mmol/L (137-145)
== END 2024-01-28 15:15 | disposition home or self-care (01) ==
LOC: ANHLAB 15:16
PROVIDERS: PCP Family Medicine; Visit Provider Internal Medicine Hematology & Oncology
DX: C50.919 Malignant neoplasm of unspecified site of unspecified female breast (principal)
CPT/HCPCS: 36415; 80047; 80053; 85025

== ENCOUNTER 2024-03-02 08:39 | Emergency (ER) | payer OTHER, SELFPAY ==
[2024-03-02 08:47] VITALS: BP 129/81; PULSE 78; RESP 18; TEMP 36.6; O2SAT 100
[2024-03-02 08:49] VITALS: BP 129/81; PULSE 78; RESP 18; TEMP 36.6; O2SAT 100
--- NOTE | 2024-03-02 08:54 | ED.SKABFB ---
HPI - Skin/Abscess/Foreign Bdy General Chief complaint: Skin/Abscess/Foreign Body Stated complaint: Right side of face rash/swelling Time Seen by Provider: 03/02/24 08:48 Source: patient and RN notes reviewed Mode of arrival: ambulatory Limitations: no limitations History of Present Illness HPI narrative: Patient presents today complaining of 3 day history of a pruritic rash to the bilateral face and midline chest. Reports the area to her face is also painful. She has tried calamine, Zyrtec, and hydrocortisone without relief. No new exposures, medications, household products. She was out in the sun the day prior to onset. States she has had something similar in the past and was treated with steroids. Related Data Home Medications Medication Instructions Recorded Confirmed ascorbate calcium (vitamin C) 500 1 g PO DAILY 06/22/20 03/02/24 mg tablet ferrous fumarate 325 mg (106 mg 325 mg PO DAILY 06/22/20 03/02/24 iron) tablet tamoxifen 20 mg tablet 20 mg PO DAILY 10/07/23 03/02/24 Allergies Allergy/AdvReac Type Severity Reaction Status Date / Time diphenhydramine AdvReac Intermediate Fainting Verified 03/02/24 08:49 [From [facility]] Review of Systems Review of Systems: CONSTITUTIONAL: Denies body aches, fever, chills, or sweats. EYES: Denies visual changes, redness, or discharge. ENT: Denies rhinorrhea, congestion, sore throat, or otalgia. CARDIOVASCULAR: Denies chest pain, palpitations, or edema. RESPIRATORY: Denies cough or dyspnea. GASTROINTESTINAL: Denies abdominal pain, nausea, vomiting, or diarrhea. GENITOURINARY: Denies dysuria or hematuria. SKIN: + pruritic rash MUSCULOSKELETAL: Denies back pain, joint pain, or myalgia. NEUROLOGIC: Denies headache, numbness, tingling, or weakness. PSYCH: Denies depression or anxiety. [facility] Past Medical History Medical History Asthma Hypersomnia Recurrent infections Shortness of breath on exertion Surgical History Surgical History H/O section Status post bilateral breast biopsy Family History Family History Sibling Family history of thyroid disease Family history of malignant neoplasm of breast in first degree relative Anemia Father Diabetes mellitus Family history of cardiovascular disease Mother Family history of osteoporosis Asthma Patient's mother is in good health Family history of arthritis Social History Social History Smoking status: Never smoker Second hand tobacco smoke exposure: No Alcohol intake: never Substance use: never Substance use type: does not use Lack of Transportation: No Lack of Food: Never True Current Housing: I Have Housing Concerned About Future Housing: No Difficulty Paying Gas/Electric Bills: No Difficulty Paying for Meds: No Currently Unemployed: No Education: Associate Degree Difficulty w/ Childcare or Family Care: No Living arrangements: with family Gender identity (if verbalized by the patient): Female Spiritual care concerns: No Comments At time of signature, I have reviewed and agree with nursing past medical, surgical, social and family history unless otherwise noted. Please see nursing chart for further information. There is no relevant family history pertinent to the presenting complaint Exam Narrative: GENERAL: Well-appearing, well-nourished, and in no acute distress. HEAD: Normocephalic, atraumatic. EYES: EOMI. No redness or drainage. Conjunctivae normal. ENT: Mucous membranes pink and moist. NECK: Normal AROM. CHEST: No respiratory distress. EXTREMITIES: Normal range of motion. No edema. SKIN: Warm, dry. Capillary refill normal. Normal skin turgor. Erythematous maculopapular rash to the bilater
== END 2024-03-02 09:03 | disposition home or self-care (01) ==
PROVIDERS: Emergency Provider Nurse Practitioner; PCP Family Medicine
DX: L25.9 Unspecified contact dermatitis, unspecified cause (principal); L03.211 Cellulitis of face; J45.909 Unspecified asthma, uncomplicated
CPT/HCPCS: 99213; G0463

== ENCOUNTER 2024-03-08 10:44 | Outpatient (CLI) | payer OTHER, SELFPAY ==
--- NOTE | ~2024-03-08 | MM_ITS ---
EXAMINATION: MM diagnostic elizabeth BI w haider HISTORY: Follow-up previous biopsies. TECHNIQUE: Additional 3-D tomosynthesis images of the breasts were performed and synthetic 2-D images were generated. CAD analysis was submitted and interpreted. COMPARISON: Multiple 03/09/2023 BREAST PARENCHYMAL COMPOSITION: Dense: The breasts are heterogeneously dense, which may obscure small masses FINDINGS: There is distortion and postsurgical change in the lower outer quadrant of the right breast posteriorly in the lower inner quadrant of the left breast anteriorly. There are no new masses, calc ifications or architectural distortion. IMPRESSION: 1. Probable benign bilateral breast postoperative change. 2. Recommend 6 month follow-up diagnostic bilateral mammogram. BI-RADS category 3, probably benign findings. Reviewed, dictated and finalized at location B.
== END 2024-03-08 10:45 | disposition home or self-care (01) ==
LOC: ANHIMG 10:46
PROVIDERS: PCP Family Medicine; Visit Provider Surgery
DX: D05.01 Lobular carcinoma in situ of right breast (principal); N60.91 Unspecified benign mammary dysplasia of right breast; N64.89 Other specified disorders of breast; R92.8 Other abnormal and inconclusive findings on diagnostic imaging of breast
CPT/HCPCS: 77062; 77066; G0279

== ENCOUNTER 2024-06-24 07:46 | Outpatient (CLI) | payer OTHER, SELFPAY ==
--- NOTE | ~2024-06-24 | US_ITS ---
Pelvic ultrasound. Clinical History: Abnormal bleeding Technique: Realtime transabdominal and transvaginal scanning of the pelvis was performed. Color flow Doppler and Doppler spectral analysis were performed. Findings: The uterus is anteverted. The endometrial stripe has a thickness of approximately 12 mm. P artially exophytic fibroid measures 4.7 cm in diameter. Myometrium is diffusely heterogeneous. The right ovary measures 4.3 x 2.8 x 3.4 cm. No significant right ovarian or adnexal mass is seen. The left ovary measures 2.3 x 3.0 x 3.3 cm. No significant left ovarian or adnexal mass is seen. There is trace free fluid in the cul de sac. Impression: Probable multiple uterine fibroids, largest discrete fibroid measuring approximately 4.7 cm. Reviewed, dictated and finalized at [facility]. LE INSPECTOR Impression: Probable multiple uterine fibroids, largest discrete fibroid measuring approxim ately 4.7 cm.
== END 2024-06-24 07:47 | disposition home or self-care (01) ==
PROVIDERS: PCP Family Medicine; Visit Provider Obstetrics & Gynecology
DX: N93.8 Other specified abnormal uterine and vaginal bleeding (principal); Z30.431 Encounter for routine checking of intrauterine contraceptive device
CPT/HCPCS: 76830; 76856

== ENCOUNTER 2024-07-01 13:35 | Outpatient (CLI) | payer OTHER, SELFPAY ==
--- NOTE | ~2024-07-01 | MR_ITS ---
EXAMINATION: MR breast BI wo/w con INDICATION: Lobular carcinoma in situ right breast TECHNIQUE: Axial VIBRANT pre and dynamic post contrast, Sagittal VIBRANT post contrast, Axial T2 STIR ASSET COMPARISON: None CONTRAST: Multihance, 18 cc BREAST COMPOSITION: Heterogeneous fibroglandular tissue FINDINGS: RIGHT BREAST: There is mild background parenchymal enhancement. No definite abnormal enhancement is p resent after contrast administration. Scattered rounded areas of mild postcontrast enhancement less t mart a centimeter in size are probably within normal limits. No pathologically enlarged axillary or in ternal mammary lymph nodes are identified. LEFT BREAST: There is mild background parenchymal enhancement. No definite abnormal enhancement is pr esent after contrast administration. Scattered rounded focal areas of enhancement less than a centime ter in size are probably within normal limits. No pathologically enlarged axillary or internal mammar y lymph nodes are identified. IMPRESSION: Scattered areas of probable benign focal enhancement in both breasts. Six-month follow-up MR recommen ded to reassess/assure stability. BI-RADS category 3, probably benign findings. Reviewed, dictated and finalized at location M. RAL STUDIES PROGRAM CHAIR IMPRESSION: Scattered areas of probable benign focal enhancement in both breasts. Six-month follow-up MR recommended to reassess/assure stability. BI-RADS category 3, probably benign findings.
== END 2024-07-01 13:36 | disposition home or self-care (01) ==
LOC: ANHIMG 13:36
PROVIDERS: PCP Family Medicine; Visit Provider Surgery
DX: N64.89 Other specified disorders of breast (principal); N60.91 Unspecified benign mammary dysplasia of right breast; D05.01 Lobular carcinoma in situ of right breast
CPT/HCPCS: 77049; A9577; C8908

== ENCOUNTER 2024-07-06 16:18 | Outpatient (CLI) | payer OTHER, SELFPAY ==
[2024-07-06 17:23] LABS: Hemoglobin 13.4 g/dL (12.0-15.0); Mean Corpuscular HGB Conc 32.7 g/dl (32-36); Mean Corpuscular Hemoglobin 27.5 pg (26-34); Mean Platelet Volume 9.8 fl (7.4-10.4); Platelet Count Result 342 k/mm3 (150-375); Red Blood Count 4.88 M/mm3 (4.2-5.4); Red Cell Distribution Width 13.6 % (11.5-14.5); White Blood Count 7.1 K/mm3 (4.5-10.0)
[2024-07-06 18:17] LABS: Alanine Aminotransferase 30 U/L (6-35); Albumin Level 4.2 g/dL (3.5-5.1); Alkaline Phosphatase 53 U/L (38-126); Anion Gap 6 mmol/L (4-12); Aspartate Amino Transferase 28 U/L (14-36); Bilirubin,Total 0.4 mg/dL (0.2-1.3); Blood Urea Nitrogen 10 mg/dL (7-17); Calcium 8.7 mg/dL (8.4-10.2); Carbon Dioxide 28 mmol/L (22-30); Chloride 106 mmol/L (98-107); Cholesterol 144 mg/dL (0-200); Estimated Glomerular Filt Rate > 60; Glucose 76 mg/dL (65-110); HDL Direct 35 mg/dL; Potassium 3.5 mmol/L (3.4-5.0); Sodium 140 mmol/L (137-145); Triglycerides 173 mg/dL (<150)
[2024-07-06 18:27] LABS: LDL Cholesterol Direct 66 mg/dL
[2024-07-06 18:34] LABS: Iron 71 ug/dL (37-170)
[2024-07-06 18:46] LABS: Percent Iron Saturation 28 % (20-50)
[2024-07-06 18:49] LABS: Vitamin D 25 Hydroxy 45.5 ng/mL
== END 2024-07-06 16:19 | disposition home or self-care (01) ==
LOC: ANHLAB 16:20
PROVIDERS: PCP Family Medicine; Visit Provider Family Medicine
DX: Z00.00 Encounter for general adult medical examination without abnormal findings (principal); D64.9 Anemia, unspecified; E61.1 Iron deficiency; J45.909 Unspecified asthma, uncomplicated; D05.01 Lobular carcinoma in situ of right breast; E53.8 Deficiency of other specified B group vitamins; G43.909 Migraine, unspecified, not intractable, without status migrainosus; N93.8 Other specified abnormal uterine and vaginal bleeding; R79.89 Other specified abnormal findings of blood chemistry
CPT/HCPCS: 36415; 80053; 80061; 82306; 82728; 83540; 83550; 85027

== ENCOUNTER 2024-11-10 15:10 | Outpatient (CLI) | payer OTHER, SELFPAY ==
[2024-11-10 15:27] LABS: Basophils Percent Auto 0.4 % (0.2-1.2); Eosinophils Percent Auto 0.3 % (0-4.4); Hematocrit 39.7 % (37.0-47.0); Hemoglobin 13.1 g/dL (12.0-15.0); Immature Granulocyte Absolute 0.01 K/mm3 (0.00-0.031); Immature Granulocyte Percent A 0.1 % (0-0.5); Lymphocytes Absolute Auto 2.97 K/mm3 (0.9-3.2); Lymphocytes Percent Auto 37.5 % (18.3-44.2); Mean Corpuscular Hemoglobin 27.5 pg (26-34); Mean Corpuscular Volume 83.2 fl (80-100); Mean Platelet Volume 9.5 fl (7.4-10.4); Monocytes Absolute Auto 0.5 K/mm3 (0.1-0.6); Monocytes Percent Auto 6.1 % (2.6-8.5); Neutrophils Absolute Auto 4.4 K/mm3 (1.3-6.7); Neutrophils Percent Auto 55.6 % (45.5-73.1); Platelet Count Result 317 k/mm3 (150-375); Red Blood Count 4.77 M/mm3 (4.2-5.4); Red Cell Distribution Width 13.2 % (11.5-14.5); White Blood Count 7.9 K/mm3 (4.5-10.0)
--- OUTSIDE RECORDS SUMMARY | 2024-11-10 16:11 | XMS_ITS | Encounter Summary ---
Author Organization [facility] [place] [facility] Address [address] [place] [address] Care Team Providers Care Journalism Intern Name Role Phone Waqar Aviles MD Primary Care Provider [phone] Encounter Details Date Type Department Care Team (Late Contact Info) Description 11/10/2024 Orders Only [facility] - [address] [place] [address] Elie Montgomery MD [facility] [employer] [address] [place] [id number] Social History Tobacco Use Types Packs/Day Years Used Date Smoking Tobacco: Never Smokeless Tobacco: Never Comments No Sex and Gender Information Value Date Recorded Sex Assigned at Not on file Legal Sex Female 1:10 PM CDT Gender Identity Not on file Sexual Orientation Not on file documented as of this encounter Plan of Treatment Upcoming Encounters Date Type Department Care Team (Late st Contact Info) Description 11/15/2024 3:45 PM CDT Office Visit [facility] - [address] [place] [address] Elie Montgomery MD [facility] [employer] [address] [place] [phone] documented as of this encounter Procedures Procedure Name Priority Date/Time Associated Diagnosis Comments CBC MIXED CELL DIFFERENTIAL Routine 11/10/2024 3:55 PM CDT documented in this encounter Results * CBC MIXED CELL DIFFERENTIAL (11/10/2024 3:55 PM CDT) Blood us Elie Montgomery MD HEMATOLOGY ORDERABLES Final Res ult documented in this encounter Visit Diagnoses Not on filedocumented in this encounter Care Teams Journalism Intern Relationship Specialty Start Date End Date Waqar Aviles MD PCP - General Family Practice 12/04/21 documented as of this encounter
--- OUTSIDE RECORDS SUMMARY | 2024-11-10 16:11 | XMS_ITS | Clinical Summary ---
Author Organization [facility] Noelle mo [facility] Address [address] [place] [address] Care Team Providers Care Analytical Statistician Name Role Phone Waqar Aviles MD Primary Care Provider [phone] [phone] Allergies Active Allergy Reactions Criticality Noted Date Comments Benadryl Allergy Decongestant Syncope Medium 2020 Medications cholecalcifero l 50,000 unit Capsule Take by mouth. Activ e cetirizine HCl (ZYRTEC ORAL) Take by mouth. A ctive ascorbic acid (VITAMIN C ORAL) Take by mouth. Activ e ferrous sulfate 325 mg (65 mg iron) tablet Take 325 mg by mouth daily. Active sertraline (ZOLOFT) 50 mg tablet TAKE 1 TABLET BY MOUTH ONCE DAILY 0 Active CYANOCOBALAMIN , VITAMIN B-12, ORAL Take by mouth. Acti ve Zepbound 2.5 mg/0.5 mL Pen Injector INJECT 2.5MG SUBCUTANEOUSLY ONCE WEEKLY 4 Active tamoxifen (NOLVADEX) 20 mg tablet Take 1 tablet by mouth once daily 90 Tablet 1 4 Active Active Problems Problem Noted Date Diagnosed Date Other dietary vitamin B12 deficiency anemia 06/18 Microcytic anemia 06/28/2019 Encounters Date Type Department Care Team Description 11/10/2024 Orders Only [facility] Oncology and Hematology - Daniel [address] [facility] [address] [place] [address] Elie Montgomery MD 11/02/2024 External Device Data ST[facility] ABSTRACTION Provider, Abstract 10/26/2024 External Device Data ST[facility] ABSTRACTION Provider, Abstract 10/25/2024 External Device Data [facility] ABSTRACTION Provider, Abstract 10/22/2024 External Device Data [facility] ABSTRACTION Provider, Abstract 10/21/2024 External Device Data [facility] ABSTRACTION Provider, Abstract 10/19/2024 External Device Data STL ABSTRACTION Provider, Abstract 10/05/2024 External Device Data STL ABSTRACTION Provider, Abstract 09/27/2024 External Device Data STL ABSTRACTION Provider, Abstract 09/08/2024 External Device Data STL ABSTRACTION Provider, Abstract from Last 3 Months Family History Medical History Relation Name Comments Diabetes Father Relation Name Status Comments Father Social History Tobacco Use Types Packs/Day Years Used Date Smoking Tobacco: Never Smokeless Tobacco: Never Tobacco Cessation:Counseling Given: Not Answered Comments No Sex and Gender Information Value Date Recorded Sex Assigned at Not on file Legal Sex Female 1:10 PM CDT Gender Identity Not on file Sexual Orientation Not on file Last Filed Vital Signs Vital Sign Reading Time Taken Comments Blood Pressure 161/104 01/28/2024 3:29 PM CDT Pulse 77 01/28/2024 3:27 PM CDT Temperature 36.2 C (97.1 F) 01/28/2024 3:27 PM CDT Respiratory Rate 14 01/28/2024 3:27 PM CDT Oxygen Saturation 95% 01/28/2024 3:27 PM CDT Inhaled Oxygen Concentration - - Weight 104.3 kg (230 lb) 01/28/2024 3:27 PM CDT Height 162.6 cm (5' 4 ) 04/29/2022 3:59 PM CDT Body Mass Index 39.48 04/29/2022 3:59 PM CDT Plan of Treatment Upcoming Encounters Date Type Department Care Team (Late st Contact Info) Description 11/15/2024 3:45 PM CDT Office Visit [facility] Oncology and Hematology - Daniel [address] [facility] [address] [place] [address] Elie Montgomery MD [address] [place] [address] Health Maintenance Due Date Last Done Comments Pre-Diabetes and Diabetes Screening 1981 DTAP/TDAP/TD VACCINES (1 - Tdap) 2000 HEPATITIS B VACCINES (1 of 3 - 19+ 3-dose series) 2000 HPV/Cotest (21-29) 2002 CERVICAL CANCER SCREENING 2011 HPV/Cotest (30-65) 2011 PAP SMEAR 2011 INFLUENZA VACCINE (#1) 2024 Preventative Visit- Commercial 08/17/2024 BREAST CANCER SCREENING 08/28/2024 08/28/19 24, 07/29/2023 HPV VACCINES Aged Out No longer eligi ble based on patient's age to complete this topic Procedures Procedure Name Priority Date/Time Associated Diagnosis Comments CBC MIXED CELL DIFFERENTIAL Routine 11/10/2024 3:55 PM CDT MAMMO DIAGNOSTIC UNI LEFT W OR WO CAD Routine 08/28/2023 1:10 PM CONCRETE TESTER Abnormal finding on breast imaging from Last 3 Months or Most Recently Relevant to Health Maintenance Results * CBC MIXED CELL DIFFERENTIAL (11/10/2024 3:55 PM CDT) Blood us Elie Montgomery MD HEMATOLOGY ORDERABLES Final Res ult * MAMMO DIAGNOSTIC UNI LEFT W OR WO CAD (08/28/2023 1:10 PM CONCRETE TESTER) Anatomical Region Laterality Modality Breast Left Mammography 08/28/2023 1:10 PM CONCRETE TESTER Addenda Addendum by Lizeth Agrawal MD on 09/03/2023 2:07 PM CONCRETE TESTER The patient is status post MRI guided core needle biopsy of the left breast on 08/28/2023. Pathology results demonstrate the following: Breast, left breast mass, MRI core needle biopsy: - Radial scar. - Fibroadenoma/tubular adenoma. This is a benign, high-risk, concordant diagnosis. Surgical consultation is recommended. The findings and further recommendations will be discussed with the patient by Dr. Whaley's office. Impressions 08/28/2023 4:04 PM CONCRETE TESTER IMPRESSION: 1. As described above, upon review of prior outside facility breast MRI 07/07/2023, it was felt that the most prominent focal area of enhancement in the left breast is located at 9:00. Technically successful MRI guided core needle biopsy of this was performed. Pathology pending. 2. Previously seen hypoechoic lesion near the nipple in the left breast on outside facility ultrasound 07/29/2023 cannot be reproduced and is felt to represent benign breast parenchyma. 3. The previously described non-mass enhancement at 8:00 in the right breast on prior MRI corresponds with the site of prior biopsy. The corresponding mass measuring on ultrasound at 8:00 in the right breast, 6 cm from the nipple actually represents the HydroMARK clip. Biopsy of this was not performed. 4. The previously noted mass at 11:00 in the right breast was felt to represent a cyst on today's sonography. Technically successful ultrasound-guided aspiration of the cyst was performed. Narrative 08/28/2023 4:04 PM CONCRETE TESTER VACUUM-ASSISTED CORE BIOPSY OF THE LEFT BREAST UTILIZING MRI GUIDANCE ULTRASOUND-GUIDED RIGHT BREAST ASPIRATION DATE: 08/28/2023 2:07 PM HISTORY: 43-year-old female with history of right breast core needle biopsy on 05/21/2023 demonstrating atypical lobular hyperplasia, lobular carcinoma in situ and complex sclerosing lesion. Outside facility breast MRI from [facility] on 07/07/2023 demonstrated multiple areas of enhancement within the left breast as well as irregular non-mass enhancement at 8:00 in the right breast. Second look mammograms and ultrasound at [facility] on 07/29/2023 demonstrated left breast cysts and a 5 mm hypoechoic lesion in the upper-outer left breast near the nipple. The abnormality was felt to be more prominent on MRI. Therefore, MRI guided core needle biopsy was recommended. Additionally, ultrasound revealed a mass at 8:00 in the right breast, 6 cm from the nipple and a mass at 11:00 in the right breast, 3 cm from the nipple. Ultrasound-guided core needle biopsy of both masses in the right breast was recommended. DICTATION LOCATION: [facility] COMPARISON: 07/29/2023 and older. TECHNIQUE/FINDINGS: Following discussion of risks and benefits of the procedure with the patient, verbal and written informed consent was obtained. PROCEDURE #1: MRI GUIDED CORE NEEDLE BIOPSY OF THE LEFT BREAST, 9:00. Upon review of the outside facility MRI performed on 07/07/2023, it is noted that there is moderate background parenchymal enhancement. Multiple foci and focal areas of enhancement are seen bilaterally, felt to likely represent benign background parenchymal enhancement. The most prominent focal area of enhancement within the left breast is noted at approximately 9:00, mid depth measuring 8 mm (image 295 at the first postcontrast series). A decision was made to biopsy this focal area of enhancement at 9:00. With regard to the previously described irregular non-mass enhancement at 8:00 in the right breast, this is felt to represent the area which previously underwent biopsy on 05/21/2023. T2 hyperintensity related to the HydroMARK clip is seen centrally within this area of enhancement (image 23 of the STIR sequence). The patient was placed prone on the MRI gantry with the left breast in compression from a medial approach. The area of interest within the left breast was localized using MRI guidance. Subsequently, the skin overlying the lesion was prepped in the usual sterile fashion. Lidocaine was used for local anesthesia. A sheath was then advanced into the area of interest and a repeat MRI was performed to assure proper localization of the lesion of interest prior to biopsy. A 9 gauge vacuum-assisted core biopsy device was then advanced through the sheath into the area of interest and 7 core biopsies were obtained. The biopsy device was then removed and a cylindrical biopsy site marker was placed through the sheath and deployed into the biopsy cavity. Repeat MRI imaging was then performed to assure deployment of the biopsy site marker. Afterwards, the sheath was removed from the breast. Hemostasis was achieved. Skin glue was applied to the incision for closure. An ice pack was applied to the site. The tissue cores were submitted to surgical pathology in formalin for histological analysis. Postprocedure mammograms of the left breast demonstrate adequate placement of the biopsy clip. PROCEDURE #2: ULTRASOUND-GUIDED ASPIRATION OF THE RIGHT BREAST, 11:00. Preliminary ultrasound of the right breast was performed. The previously described mass at 8:00 in the right breast, 6 cm from the nipple actually represents the HydroMARK clip from prior biopsy. The linear echogenic clip is seen within the [place]-gel. Biopsy of this area was not performed. Redemonstrated is a nearly anechoic mass with indistinct margins at 11:00 in the right breast, 3 cm from the nipple. On real-time sonography, it was felt that this appeared to represent a mildly complicated cyst rather than a solid mass. A decision was made to attempt aspiration. Findings were discussed with the patient. After sterile preparation of the skin, 1% lidocaine was utilized for local anesthesia. Under ultrasound guidance, a 21-gauge needle was advanced into the left breast. Less than 1 cc of benign-appearing cyst fluid was aspirated and the cyst was completely decompressed. The fluid was discarded. There is no evidence of residual solid or cystic lesion post aspiration procedure. Hemostasis was achieved. A sterile bandage was applied. Sonography of the upper-outer periareolar left breast was also performed in order to further evaluate the finding seen on outside facility ultrasound 07/29/2023. The previously seen hypoechoic area near the nipple is not reproduced on today's sonography. The patient tolerated the procedures well and there was no evidence of immediate complication. The patient was given verbal as well as written post-procedure instructions prior to the release from the department. us Tracy Whaley MD MAMMO ORDERABLES Edited Resu lt - Final from Last 3 Months or Most Recently Relevant to Health Maintenance Insurance [employer] CHOICE POS II Care Teams Analytical Statistician Relationship Specialty Start Date End Date Waqar Aviles MD PCP - General Family Practice 12/04/21
[2024-11-10 16:22] LABS: Iron 58 ug/dL (37-170)
[2024-11-10 16:24] LABS: Alanine Aminotransferase 21 U/L (6-35); Albumin Level 4.3 g/dL (3.5-5.1); Alkaline Phosphatase 52 U/L (38-126); Anion Gap 9 mmol/L (4-12); Aspartate Amino Transferase 54 U/L (14-36); Bilirubin,Total 0.4 mg/dL (0.2-1.3); Blood Urea Nitrogen 15 mg/dL (7-17); Calcium 9.1 mg/dL (8.4-10.2); Carbon Dioxide 21 mmol/L (22-30); Chloride 109 mmol/L (98-107); Estimated Glomerular Filt Rate > 60; Glucose 93 mg/dL (65-110); Potassium 3.7 mmol/L (3.4-5.0); Sodium 139 mmol/L (137-145)
[2024-11-10 16:32] LABS: Percent Iron Saturation 21 % (20-50)
[2024-11-10 17:30] LABS: Folic Acid 7.3 ng/mL (2.76->20)
== END 2024-11-10 15:11 | disposition home or self-care (01) ==
LOC: ANHLAB 15:11
PROVIDERS: PCP Family Medicine; Visit Provider Internal Medicine Hematology & Oncology
DX: D64.9 Anemia, unspecified (principal)
CPT/HCPCS: 36415; 80053; 82607; 82728; 82746; 83540; 83550; 85025

== ENCOUNTER 2024-12-28 15:41 | Outpatient (CLI) | payer OTHER, SELFPAY ==
--- NOTE | ~2024-12-28 | MR_ITS ---
MR breast BI wo/w con 12/29/2024 8:00 CDT INDICATION: Diagnosis of lobular carcinoma in situ of the right breast. Probable benign background en hancement on prior MRI examination. Short-term follow-up recommended. TECHNIQUE: MRI of the breasts perform using standard protocol pre-and post IV contrast with the follo wing sequences: Axial T2 STIR, axial T1, axial vibrant T1 with fat suppression precontrast and multip hasic postcontrast. 15 cc MultiHance administered intravenously. COMPARISON: Comparison to multiple prior studies sequentially, with oldest reviewed study dated 03/09. FINDINGS: The breasts are composed of heterogeneous fibroglandular tissue. There are small bilateral breast cysts. Right breast: There are no abnormalities on the precontrast sequences. There is mild background paren chymal enhancement. There is a stable foci of enhancement measuring 4 mm in the upper inner quadrant of the right breast with medium plateau enhancement, likely benign. There are additional bilateral no dular foci of enhancement decreased in number compared with prior MRI dated 07/01/2024 and 07/07/2023 no new masses or areas of abnormal enhancement are identified. No areas of enhancement meeting thres hold criteria on CAD analysis. No evidence of signal abnormalities in the axillary or internal mamma ry node distributions. LEFT BREAST: No signal abnormalities on precontrast sequences. There is mild background parenchymal enhancement. No enhancing lesions following contrast administration. Decreased number of areas of n odular background enhancement in the left breast.. No evidence of signal abnormalities in the axilla ry or internal mammary node distributions. IMPRESSION: 1: Decreased number of areas of probable benign focal nodular background enhancement compared with pr ior MRI examination. Recommend follow-up examination with diagnostic bilateral mammogram and possible additional ultrasound. BI-RADS CATEGORY 0 - INCOMPLETE STUDY, NEED ADDITIONAL IMAGING EVALUATION. Reviewed, dictated and finalized at location A. IMPRESSION: 1: Decreased number of areas of probable benign focal nodular background enhanc ement compared with prior MRI examination. Recommend follow-up examination with diagnostic bilateral mammogram and possible additional ultrasound. BI-RADS CATEGORY 0 - INCOMPLETE STUDY, NEED ADDITIONAL IMAGING EVALUATION.
--- OUTSIDE RECORDS SUMMARY | 2024-12-28 15:46 | XMS_ITS | Clinical Summary ---
Author Organization [facility] Noelle mo Raj Address [address] [place] [address] Care Team Providers Care Pharmacy Innovation Assistant Name Role Phone Waqar Aviles MD Primary Care Provider [phone] [phone] Allergies Active Allergy Reactions Criticality Noted Date Comments Benadryl Allergy Decongestant Syncope Medium 2020 Medications cholecalcifer ol 50,000 unit Capsule Take by mouth. Ac tive cetirizine HCl (ZYRTEC ORAL) Take by mouth. Activ e ascorbic acid (VITAMIN C ORAL) Take by mouth. Activ e ferrous sulfate 325 mg (65 mg iron) tablet Take 325 mg by mouth daily. Active sertraline (ZOLOFT) 50 mg tablet TAKE 1 TABLET BY MOUTH ONCE DAILY 05/19/20 Active CYANOCOBALAMI N, VITAMIN B-12, ORAL Take by mouth. Acti ve Zepbound 2.5 mg/0.5 mL Pen Injector INJECT 2.5MG SUBCUTANEOUSLY ONCE WEEKLY 01/13/20 24 Active tamoxifen (NOLVADEX) 20 mg tablet Take 1 tablet by mouth once daily 90 Tablet 3 12/20/19 25 Active tamoxifen (NOLVADEX) 20 mg tablet Take 1 tablet by mouth once daily 90 Tablet 1 05/19/20 24 2024 Discontinued Active Problems Problem Noted Date Diagnosed Date Other dietary vitamin B12 deficiency anemia 06/18 Microcytic anemia 06/28/2019 Encounters Date Type Department Care Team Description 12/19/2024 Refill [facility] Oncology and Hematology - Daniel [address] [place] [address] Elie Montgomery MD 11/15/2024 3:45 PM CDT Office Visit [facility] Oncology and Hematology Daniel [address] [place] [address] Elie Montgomery MD Anemia, chronic disease (Primary Dx) 11/11/2024 Orders Only [facility] Oncology and Hematology - Daniel [address] [place] [address] Elie Montgomery MD 11/10/2024 Orders Only [facility] Oncology and Hematology - Daniel [address] [place] [address] Elie Montgomery MD 11/02/2024 External Device Data [...] Sign Reading Time Taken Comments Blood Pressure 125/73 11/15/2024 3:38 PM CDT Pulse 66 11/15/2024 3:38 PM CDT Temperature 36.5 C (97.7 F) 11/15/2024 3:38 PM CDT Respiratory Rate 16 11/15/2024 3:38 PM CDT Oxygen Saturation 99% 11/15/2024 3:3 8 PM CDT Inhaled Oxygen Concentration - - Weight 70.9 kg (156 lb 6.4 oz) 11/15/2024 3:38 PM CDT Patient verbally stated that this is the correct weight Height 162.6 cm (5' 4 ) 04/29/2022 3:59 PM CDT Body Mass Index 26.85 04/29/2022 3:59 PM CDT Plan of Treatment Upcoming Encounters Date Type Department Care Team (Late st Contact Info) Description 11/15/2025 3:30 PM CDT Office Visit [facility] Oncology and Hematology - Daniel [address] [facility] [address] [place] [address] Elie Montgomery MD [address] [address] [place] [address] Health Maintenance Due Date Last Done Comments Pre-Diabetes and Diabetes Screening 1981 DTAP/TDAP/TD VACCINES (1 - Tdap) 2000 HEPATITIS B VACCINES (1 of 3 - 19+ 3-dose series) 2000 HPV/Cotest (21-29) 2002 CERVICAL CANCER SCREENING 2011 HPV/Cotest (30-65) 2011 PAP SMEAR 2011 INFLUENZA VACCINE (#1) 2024 BREAST CANCER SCREENING 08/28/2024 08/28/19 24, 07/29/2023 HPV VACCINES Aged Out No longer eligi ble based on patient's age to complete this topic Procedures Procedure Name Priority Date/Time Associated Diagnosis Comments CBC MIXED CELL DIFFERENTIAL Routine 11/10/2024 3:55 PM CDT COMPREHENSIVE METABOLIC PANEL Routine 11/10/2024 1:11 PM CDT MAMMO DIAGNOSTIC UNI LEFT W OR WO CAD Routine 08/28/2023 1:10 PM STICKER ON Abnormal finding on breast imaging from Last 3 Months or Most Recently Relevant to Health Maintenance Results * CBC MIXED CELL DIFFERENTIAL (11/10/2024 3:55 PM CDT) Blood us Elie Montgomery MD HEMATOLOGY ORDERABLES Final Res ult * COMPREHENSIVE METABOLIC PANEL (11/10/2024 1:11 PM CDT) Blood us Elie Montgomery MD CHEMISTRY ORDERABLES Final Resu lt * MAMMO DIAGNOSTIC UNI LEFT W OR WO CAD (08/28/2023 1:10 PM STICKER ON) Anatomical Region Laterality Modality Breast Left Mammography 08/28/2023 1:10 PM STICKER ON Addenda Addendum by Lizeth Agrawal MD on 09/03/2023 2:07 PM STICKER ON The patient is status post MRI guided [...] Dr. Whaley's office. Impressions 08/28/2023 4:04 PM STICKER ON IMPRESSION: 1. As described above, upon review [...] cyst was performed. Narrative 08/28/2023 4:04 PM STICKER ON VACUUM-ASSISTED CORE BIOPSY OF THE LEFT BREAST UTILIZING MRI GUIDANCE ULTRASOUND-GUIDED RIGHT BREAST ASPIRATION DATE: 08/28/2023 2:07 PM HISTORY: 43-year-old female with history of right breast core needle biopsy on 05/21/2023 demonstrating atypical lobular hyperplasia, lobular carcinoma in situ and complex sclerosing lesion. Outside facility breast MRI from [facility] on 07/07/2023 demonstrated multiple areas of enhancement within the left breast as well as irregular non-mass enhancement at 8:00 in the right breast. Second look mammograms and ultrasound at [facility] on 07/29/2023 demonstrated left breast cysts [...] the right breast was recommended. DICTATION LOCATION: [facility] COMPARISON: 07/29/2023 and older. TECHNIQUE/FINDINGS: [...] linear echogenic clip is seen within the [place]-gel. Biopsy of this area was not performed. [...] prior to the release from the department. Tracy Whaley MD MAMMO ORDERABLES Edited Resu lt - Final from Last 3 Months or Most Recently Relevant to Health Maintenance Insurance [employer] CHOICE POS II Care Teams Pharmacy Innovation Assistant Relationship Specialty Start Date End Date Waqar Aviles MD PCP - General Family Practice 12/04/21
== END 2024-12-28 15:42 | disposition home or self-care (01) ==
PROVIDERS: PCP Family Medicine; Visit Provider Surgery
DX: D05.01 Lobular carcinoma in situ of right breast (principal); N60.91 Unspecified benign mammary dysplasia of right breast; R92.8 Other abnormal and inconclusive findings on diagnostic imaging of breast; N64.89 Other specified disorders of breast
CPT/HCPCS: 77049; A9577; C8908

== ENCOUNTER 2025-01-17 10:58 | Outpatient (CLI) | payer OTHER, SELFPAY ==
--- NOTE | ~2025-01-17 | MM_ITS ---
MM DIAGNOSTIC VICTORINO BI W KATHERIN INDICATION: Asymptomatic, referred for diagnostic mammogram. 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 COMPARISON: 03/08/2024 and 03/09/2023 TECHNIQUE: Digital Breast Tomosynthesis CC, MLO views were obtained of Both breasts with computer-aid ed detection to assist in interpretation of the study. FINDINGS: The breasts are heterogeneously dense, which may obscure small masses. Postsurgical changes in both breasts unchanged.. No new focal dominant mass, architectural distortion, or suspicious microcalcifications are identifie d. There are no features to suggest malignancy. IMPRESSION: Stable benign mammogram. No evidence of malignancy in the breast. RECOMMENDATION: Return to screening mammography in 12 months. BI-RADS 2, BENIGN Reviewed, dictated and finalized at location B.
--- OUTSIDE RECORDS SUMMARY | 2025-01-17 11:20 | XMS_ITS | Clinical Summary ---
[facility] Address [address] [place] [address] Care Team Providers Care Cyber Security Instructor Name Role Phone Waqar Aviles MD Primary Care Provider [phone] [phone] Allergies Active Allergy Reactions Criticality Noted Date [...] Encounters Date Type Department Care Team Description 01/10/2025 External Device Data STL ABSTRACTION Provider, Abstract 01/04/2025 External Device Data STL ABSTRACTION Provider, Abstract 01/03/2025 External Device Data STL ABSTRACTION Provider, Abstract 12/19/2024 Refill [facility] Oncology and Hematology - Daniel [address] [place] [address] Elie Montgomery MD 11/15/2024 3:45 PM CDT Office Visit [facility] Oncology and Hematology - Daniel [address] [place] [address] Elie Montgomery MD Anemia, chronic disease (Primary Dx) 11/11/2024 Orders Only [facility] Oncology and Hematology - Daniel [address] [place] [address] Elie Montgomery MD 11/10/2024 Orders Only [facility] Oncology and Hematology - Daniel [address] [place] [address] Elie Montgomery MD 11/02/2024 External Device Data [...] the correct weight Height 162.6 cm (5' 4) 04/29/2022 3:59 PM CDT Body Mass Index 26.85 04/29/2022 3:59 PM CDT Plan of Treatment Upcoming Encounters Date Type Department Care Team (Late st Contact Info) Description 11/15/2025 3:30 PM CDT Office Visit [facility] Oncology and Hematology - [place] [address] [facility] [address] [place] [address] Elie Montgomery MD [address] [place] [address] Health Maintenance Due Date Last [...] OR WO CAD Routine 08/28/2023 1:10 PM EXECUTIVE MEETING MANAGER Abnormal finding on breast imaging from Last [...] W OR WO CAD (08/28/2023 1:10 PM EXECUTIVE MEETING MANAGER) Anatomical Region Laterality Modality Breast Left Mammography 08/28/2023 1:10 PM EXECUTIVE MEETING MANAGER Addenda Addendum by Lizeth Agrawal MD on 09/03/2023 2:07 PM EXECUTIVE MEETING MANAGER The patient is status post MRI guided [...] Dr. Whaley's office. Impressions 08/28/2023 4:04 PM EXECUTIVE MEETING MANAGER IMPRESSION: 1. As described above, upon review [...] cyst was performed. Narrative 08/28/2023 4:04 PM EXECUTIVE MEETING MANAGER VACUUM-ASSISTED CORE BIOPSY OF THE LEFT BREAST UTILIZING MRI GUIDANCE ULTRASOUND-GUIDED RIGHT BREAST ASPIRATION DATE: 08/28/2023 2:07 PM HISTORY: 43-year-old female with history of right breast core needle biopsy on 05/21/2023 demonstrating atypical lobular hyperplasia, lobular carcinoma in situ and complex sclerosing lesion. Outside facility breast MRI from [facility] on 07/07/2023 demonstrated multiple areas of enhancement within the left breast as well as irregular non-mass enhancement at 8:00 in the right breast. Second look mammograms and ultrasound at [facility] on 07/29/2023 demonstrated left breast cysts [...] linear echogenic clip is seen within the [place]-gel. Biopsy of this area was not performed. [...] Insurance [employer] CHOICE POS II Care Teams Cyber Security Instructor Relationship Specialty Start Date End Date Waqar Aviles MD PCP - General Family Practice 12/04/21
== END 2025-01-17 10:59 | disposition home or self-care (01) ==
PROVIDERS: PCP Family Medicine; Visit Provider Surgery
DX: R92.8 Other abnormal and inconclusive findings on diagnostic imaging of breast (principal); D05.01 Lobular carcinoma in situ of right breast; N60.91 Unspecified benign mammary dysplasia of right breast
CPT/HCPCS: 76642; 77062; 77066; G0279

== ENCOUNTER 2025-05-25 08:17 | Emergency (ER) | payer OTHER, SELFPAY ==
--- NOTE | 2025-05-25 08:19 | ED.FEMALEGU ---
HPI - Female Genitourinary General Chief complaint: Urogenital-Female Stated complaint: uti Time Seen by Provider: 05/25/25 08:45 Source: patient, RN notes reviewed and old records reviewed Mode of arrival: ambulatory Limitations: no limitations History of Present Illness HPI Narrative: 44-year-old female presents to the [facility] with concerns for a UTI. Patient reports that Thursday she started with some frequency, urgency pain at the end of urine stream has well as suprapubic pressure. Denies any CVA tenderness. Denies fevers. Denies any nausea or vomiting Patient states that she took [id number]-ozsmmhp products on Thursday and Thursday. Continues to have symptoms. Onset (ago): day(s) (2-3) Related Data Home Medications ?Medication ?Instructions ?Recorded ?Confirmed ?Last Taken ?Type ascorbate calcium (vitamin C) 500 1 g PO DAILY 06/22/20 07/28/24 Unknown History mg tablet ferrous fumarate 325 mg (106 mg 325 mg PO DAILY 06/22/20 07/28/24 Unknown History iron) tablet tamoxifen 20 mg tablet 20 mg PO DAILY 10/07/23 07/28/24 Unknown History levonorgestrel (Mirena) 1 device intrauterine ONCE 05/26/24 07/28/24 Unknown History Allergies Allergy/AdvReac Type Severity Reaction Status Date / Time diphenhydramine (From AdvReac Intermediate Fainting Verified 05/25/25 08:44 Benadryl) Review of Systems Review of Systems: All systems reviewed & are unremarkable except as noted in HPI and below Constitutional: Constitutional: Reports no additional constitutional complaints Cardiovascular: Cardiovascular: Reports no additional cardiovascular complaints, Denies chest pain and Denies dyspnea Respiratory: Respiratory: Reports no additional respiratory complaints, Denies chest congestion, Denies cough and Denies dyspnea Gastrointestinal: Gastrointestinal: Reports as per HPI Genitourinary: Genitourinary: Reports as per HPI Musculoskeletal: Musculoskeletal: Reports no additional musculoskeletal complaints Integumentary/Breasts: Skin/Breast: Reports system reviewed and no additional complaints, except as docu PMFSH Past Medical History Medical History Asthma Hypersomnia Recurrent infections Shortness of breath on exertion Surgical History Surgical History H/O section Status post bilateral breast biopsy Family History Family History Sibling Family history of thyroid disease Family history of malignant neoplasm of breast in first degree relative Anemia Father Diabetes mellitus Family history of cardiovascular disease Mother Family history of osteoporosis Asthma Patient's mother is in good health Family history of arthritis Social History Social History Smoking status: Never smoker Second hand tobacco smoke exposure: No Alcohol intake: never Substance use: never Substance use type: does not use Do You Feel Safe in your Home?: Yes Lack of Transportation: No Lack of Food: Never True Current Housing: I Have Housing Concerned About Future Housing: No Difficulty Paying Gas/Electric Bills: No Difficulty Paying for Meds: No Currently Unemployed: No Education: Associate Degree Difficulty w/ Childcare or Family Care: No Living arrangements: with family Gender identity (if verbalized by the patient): Female Spiritual care concerns: No Comments At the time of my signature, I reviewed and agree with the nursing past medical, surgical, social, and family history. There is no relevant family history pertinent to the patient complaint. Exam Const: General: cooperative, healthy appearing, comfortable, no acute distress, well developed, alert and well nourished Nutritional Appearance: well nourished Orientation/consciousness: patient oriented x3 Limitations: no limitations HENMT: Head: normal to inspection Mouth: Yes Normal oral and palatal mucosa present, Yes lip normal, Yes tongue normal and Yes moist mucous membranes Eyes: General: appearance normal, both eyes and all related structures Alignment and Position: alignment normal Neck: Neck: normal visual inspection, full ROM, no lymphadenopathy and no meningeal signs Chest: Chest palpation & inspection: normal inspection of the chest Resp: Effort & Inspection: normal respiratory effort and able to speak in complete sentences Auscultation: clear to auscultation bilaterally, no crackles, no rales, no rhonchi and no wheezes Cardio: Rate: regular rate GI: GI Palp: No abdominal tenderness : General: Yes no CVA tenderness Skin: General skin exam: normal color and no rashes or lesions noted Neuro: General: patient oriented x3, gait normal, moves all extremities and no meningeal signs Cognition (Neuro): normal cognition Speech: normal speech Gait exam (Neuro): Normal gait present Extrem: General: normal to inspection, full ROM, capillary refill normal and normal gait Psych: Appearance: grossly normal and well kempt Mental Status: mental status grossly normal Speech and movement: Normal speech and movement present and Clear speech present Affect: normal affect Attitude: cooperative Course Course Level of Care: Express Care Visit Vital Signs Vital signs: Vital Signs Temperature 98.8 F 05/25/25 08:28 Pulse Rate 73 05/25/25 08:28 Respiratory Rate 16 05/25/25 08:28 Blood Pressure 113/67 05/25/25 08:28 Pulse Oximetry 100 05/25/25 08:28 Oxygen Delivery Room Air 05/25/25 08:28 Temperature 98.8 F 05/25/25 08:28 Pulse Rate 73 05/25/25 08:28 Respiratory Rate 16 05/25/25 08:28 Blood Pressure 113/67 05/25/25 08:28 Pulse Oximetry 100 05/25/25 08:28 Oxygen Delivery Room Air 05/25/25 08:28 Reviewed MDM - Female Genitourinary MDM Narrative Medical decision making narrative: Patient sitting comfortably in exam room. Patient is nontoxic, vitals are stable. Patient presents 3-4 day history of urinary symptoms. Patient positive blood, positive leukocytes, will culture, start on antibiotics. Patient is appropriate for outpatient treatment with close follow-up Discharge instructions reviewed with patient, as well as provided in writing per nursing staff. The instructions also include specific and strict return/GO TO THE ER as well as f/u information. All questions have been answered, and the patient deny any further questions with discharge and discharge plan. Some parts of this dictation were generated by voice recognition software and may contain typographical and/or grammatical inaccuracies. Differential Diagnosis Differential diagnosis: Likely urinary tract infection, vaginitis and cystitis Lab Data Labs: Lab Results 05/25/25 Range/Units 08:57 POC Urine Color Yellow POC Urine Clarity Cloudy POC Urine pH 7.5 POC Ur Specif [place] 1.020 POC Urine Protein 2+ (Negative) POC Ur Glucose (UA) Negative (Negative) POC Urine Ketones Negative (Negative) POC Urine Blood 2+ (Negative) POC Urine Nitrite Negative (Negative) POC Urine Bilirubin Negative (Negative) POC Urine Urobilinogen 0.2 POC U Leukocyte Esteras 3+ (Negative) Reviewed Critical Care Time Critical Care Time Critical Care Time: No Discharge Plan Discharge Clinical Impression: UTI (urinary tract infection) Qualifiers: Urinary tract infection type: acute cystitis Hematuria presence: with hematuria Qualified Code(s): N30.01 - Acute cystitis with hematuria Patient Disposition: Home Condition: Stable Instructions: Antibiotic Form, Urinary Tract Infection in Women (DC) Additional Instructions: Increased water intake Take Tylenol as needed for pain Take antibiotic as prescribed Today your urine dip showed a probability of a UTI. You have been prescribed an antibiotic. Your urine will be sent to our lab for a culture. If at that time a bacteria grows that is not covered by the antibiotic prescribed you will be notified. Follow-up with primary care For new or worsening symptoms go directly to the emergency room Patient Language: Danish Prescriptions: New amoxicillin-pot clavulanate 875-125 mg tablet 1 tablet PO Q12H Qty: 10 0RF No Action ferrous fumarate 325 mg (106 mg iron) tablet 325 mg PO DAILY ascorbate calcium (vitamin C) 500 mg tablet 1 g PO DAILY cholecalciferol (vitamin D3) 125 mcg (5,000 unit) tablet 125 mcg PO DAILY Qty: 90 3RF tamoxifen 20 mg tablet 20 mg PO DAILY Mirena 21 mcg/24hr (up to 8 yrs) 52 mg intrauterine device 1 device intrauterine ONCE Rx Instructions: as a single dose sertraline 50 mg tablet See Rx Instructions .ROUTE .COMPLEX Qty: 90 0RF Dose Instruction: Take 1 tablet by mouth once daily Rx Instructions: Take 1 tablet by mouth once daily Follow-up/Referrals: Waqar Aviles MD [Primary Care Provider, Family Practice] - 1 Week Clinical Impression: UTI (urinary tract infection) Time of Disposition: 08:53
[2025-05-25 08:28] VITALS: BP 113/67; PULSE 73; RESP 16; TEMP 37.1; O2SAT 100
[2025-05-25 09:01] LABS: EDUAAPPEAR Cloudy; EDUABILI Negative (Negative); EDUABLOOD 2+ (Negative); EDUACOLOR1 Yellow; EDUAGLUCOSE Negative (Negative); EDUAKETONE Negative (Negative); EDUALEUKO 3+ (Negative); EDUANITRATE Negative (Negative); EDUAPH 7.5; EDUAPROTEIN 2+ (Negative); EDUASPGRAVITY 1.020; EDUAUROBILI 0.2
== END 2025-05-25 08:55 | disposition home or self-care (01) ==
PROVIDERS: Emergency Provider Nurse Practitioner; PCP Family Medicine
DX: N30.01 Acute cystitis with hematuria (principal); J45.909 Unspecified asthma, uncomplicated
CPT/HCPCS: 81003; 87077; 87086; 87186; 99213; G0463

== ENCOUNTER 2025-06-20 10:31 | Emergency (ER) | payer OTHER, SELFPAY ==
[2025-06-20 10:33] VITALS: BP 119/65; PULSE 83; RESP 16; TEMP 36.4; O2SAT 100
--- NOTE | 2025-06-20 10:43 | ED.FEMALEGU ---
HPI - Female Genitourinary General Chief complaint: Urogenital-Female Stated complaint: ?UTI Time Seen by Provider: 06/20/25 10:43 Source: patient, RN notes reviewed and old records reviewed Mode of arrival: ambulatory Limitations: no limitations History of Present Illness HPI Narrative: 44 year old female who presents to express care with complaints of pain burning and frequency of urination which started this morning and noted some pink on tissue when she wiped also. Patient reports no fevers, chills or any body aches, denies any back pain, flank pain or any feelings of nausea with no vomiting or diarrhea. Patient does report some suprapubic pressure and burning/ pain when urinating and immediately after. Patient has not taken any AZO for her symptoms or OTC medication.Patient was treated about a month ago with Augmentin for 5 days for UTI. MD elicited complaint: UTI Pertinent past history: other (UTI one month ago with simular symptoms treated) Onset (ago): day(s) (this morning) Location of symptoms: suprapubic and urethra Severity scale (1-10): 3 Vaginal discharge: none Vaginal bleeding: none Possible : other (mirena) Related Data Home Medications ?Medication ?Instructions ?Recorded ?Confirmed ?Last Taken ?Type ascorbate calcium (vitamin C) 500 1 g PO DAILY 06/22/20 07/28/24 Unknown History mg tablet ferrous fumarate 325 mg (106 mg 325 mg PO DAILY 06/22/20 07/28/24 Unknown History iron) tablet levonorgestrel (Mirena) 1 device intrauterine ONCE 05/26/24 07/28/24 Unknown History tamoxifen 20 mg tablet mg 06/20/25 Unknown History Allergies Allergy/AdvReac Type Severity Reaction Status Date / Time diphenhydramine (From AdvReac Intermediate Fainting Verified 06/20/25 10:40 Benadryl) Review of Systems Review of Systems: CONSTITUTIONAL: Denies fever, chills, or sweats. CARDIOVASCULAR: Denies chest pain, palpitations, or edema. RESPIRATORY: Denies cough or dyspnea. GASTROINTESTINAL: Denies abdominal pain, nausea, vomiting, or diarrhea. GENITOURINARY: Reports dysuria, frequency, urgency. Denies flank pain has noted some blood on tissue when wiping this morning. SKIN: Denies rash or itching. MUSCULOSKELETAL: Denies back pain or myalgia. Denies CVA tenderness NEUROLOGIC: Denies headache All systems reviewed & are unremarkable except as noted in HPI and below PMFSH Past Medical History Medical History (Updated 06/21/25 @ 09:43 by Shital Diaz APRN) Anemia Pneumonia Breast cancer Shortness of breath on exertion Hypersomnia Recurrent infections Asthma Surgical History Surgical History History of lumpectomy of both breasts on Tamoxifen Status post bilateral breast biopsy H/O section Family History Family History Sibling Family history of thyroid disease Family history of malignant neoplasm of breast in first degree relative Anemia Father Diabetes mellitus Family history of cardiovascular disease Mother Family history of osteoporosis Asthma Patient's mother is in good health Family history of arthritis Social History Social History Smoking status: Never smoker Second hand tobacco smoke exposure: No Alcohol intake: never Substance use: never Substance use type: does not use Do You Feel Safe in your Home?: Yes Lack of Transportation: No Lack of Food: Never True Current Housing: I Have Housing Concerned About Future Housing: No Difficulty Paying Gas/Electric Bills: No Difficulty Paying for Meds: No Currently Unemployed: No Education: Associate Degree Difficulty w/ Childcare or Family Care: No Living arrangements: with family Gender identity (if verbalized by the patient): Female Spiritual care concerns: No Comments At time of signature, agree with nursing past medical, surgical, social and family history. There is no relevant family history pertinent to the presenting complaint Exam Narrative: GENERAL: Well-appearing, well-nourished, and in no acute distress. HEAD: Normocephalic, atraumatic. NECK: Supple.no lymphadenopathy CHEST: Clear to auscultation. No respiratory distress.no cough noted SAO2 100% on room air, HEART: Regular rate and rhythm. No murmur heard. Normal peripheral pulses. ABDOMEN: Soft, nontender to palpation,, nondistended, normal active bowel sounds. No CVA tenderness.Dysuria frequency and urgency with urination, some suprapubic pressure reported EXTREMITIES: Normal range of motion. No edema. SKIN: Warm, dry, no rash. NEURO: No focal deficits. Alert and oriented x3. Course Course Emergency Course: Patient is aware of diagnosis, understands and agrees to treatment plan.? Anticipatory guidance given.? Patient agrees to follow-up as directed and is aware of reasons to seek care at the emergency department. Portions of this record may have been created with voice recognition software Level of Care: Express Care Visit Vital Signs Vital signs: Vital Signs Temperature 36.4 C 06/20/25 10:33 Pulse Rate 83 06/20/25 10:33 Respiratory Rate 16 06/20/25 10:33 Blood Pressure 119/65 06/20/25 10:33 Pulse Oximetry 100 06/20/25 10:33 Oxygen Delivery Room Air 06/20/25 10:33 Temperature 36.4 C 06/20/25 10:33 Pulse Rate 83 06/20/25 10:33 Respiratory Rate 16 06/20/25 10:33 Blood Pressure 119/65 06/20/25 10:33 Pulse Oximetry 100 06/20/25 10:33 Oxygen Delivery Room Air 06/20/25 10:33 reviewed MDM - Female Genitourinary MDM Narrative Medical decision making narrative: Exam findings and UA show no acute concerns or changes; patient is non-toxic appearing and is in no distress.? Patient is appropriate for outpatient treatment and follow-up. Differential Diagnosis Differential diagnosis: Likely urinary tract infection, cystitis and other (dysuria) Medical Records Attestation: I reviewed the patient's medical records. Lab Data Attestation: I reviewed the patient's lab results. Lab results narrative: See urine dip:2+ blood and 2+ leukocytes, sent for culture Labs: Lab Results 06/20/25 Range/Units 10:47 POC Urine Color Yellow POC Urine Clarity Cloudy POC Urine pH 8.5 POC Ur Specif [place] 1.020 POC Urine Protein Negative (Negative) POC Ur Glucose (UA) Negative (Negative) POC Urine Ketones Negative (Negative) POC Urine Blood 2+ (Negative) POC Urine Nitrite Negative (Negative) POC Urine Bilirubin Negative (Negative) POC Urine Urobilinogen 0.2 POC U Leukocyte Esteras 2+ (Negative) reviewed Critical Care Time Critical Care Time Critical Care Time: No Discharge Plan Discharge Clinical Impression: Urinary tract infection Qualifiers: Urinary tract infection type: site unspecified Hematuria presence: with hematuria Qualified Code(s): N39.0 - Urinary tract infection, site not specified Patient Disposition: Home Condition: Stable Instructions: Antibiotic Form, Urinary Tract Infection in Women (ED) Additional Instructions: Increase fluids especially cranberry juice and water Avoid caffeine and carbonated beverages Antibiotic as directed Medicine as directed--cautioned it will cause your urine to be bright orange Tylenol/ibuprofen for pain or fever Follow-up with her primary care provider if further problems or concerns Recheck if you have fever over 101, nausea and vomiting. If your symptoms persist, change or worsen significantly before you can contact your personal physician then please, without delay, go to the emergency department for further evaluation. Follow-up with PCP in 7-10 days or sooner if needed Patient Language: Citizen Of [place] Prescriptions: New ciprofloxacin HCl 500 mg tablet 500 mg PO Q12H Qty: 14 0RF phenazopyridine [Pyridium] 200 mg tablet 200 mg PO TID PRN (Reason: pain) Qty: 6 0RF Rx Instructions: will turn your urine orange, take to help with urinary burning No Action tamoxifen 20 mg tablet ferrous fumarate 325 mg (106 mg iron) tablet 325 mg PO DAILY ascorbate calcium (vitamin C) 500 mg tablet 1 g PO DAILY cholecalciferol (vitamin D3) 125 mcg (5,000 unit) tablet 125 mcg PO DAILY Qty: 90 3RF Mirena 21 mcg/24hr (up to 8 yrs) 52 mg intrauterine device 1 device intrauterine ONCE Rx Instructions: as a single dose sertraline 50 mg tablet See Rx Instructions .ROUTE .COMPLEX Qty: 90 0RF Dose Instruction: Take 1 tablet by mouth once daily Rx Instructions: Take 1 tablet by mouth once daily Wegovy 1 mg/0.5 mL pen injector 1 mg subcut WEEKLY Qty: 2 0RF Rx Instructions: administer weeks 9 through 12 of therapy Follow-up/Referrals: Waqar Aviles MD [Primary Care Provider, Family Practice] Stand Alone Forms: Work/School Release IP Time of Disposition: 11:02 Quality Hanny Coma Scale Eyes: Open Verbal: Oriented and Alert Motor: Follows Commands [place] Coma Total Score: 15
[2025-06-20 10:50] LABS: EDUAAPPEAR Cloudy; EDUABILI Negative (Negative); EDUABLOOD 2+ (Negative); EDUACOLOR1 Yellow; EDUAGLUCOSE Negative (Negative); EDUAKETONE Negative (Negative); EDUALEUKO 2+ (Negative); EDUANITRATE Negative (Negative); EDUAPH 8.5; EDUAPROTEIN Negative (Negative); EDUASPGRAVITY 1.020; EDUAUROBILI 0.2
--- OUTSIDE RECORDS SUMMARY | 2025-06-20 12:08 | XMS_ITS | Clinical Summary ---
[facility] Address [address] [place] [address] Care Team Providers Care Hospice Social Worker Name Role Phone Waqar Aviles MD Primary Care Provider [phone] Allergies Active Allergy Reactions Criticality Noted Date [...] by mouth once daily 90 Tablet 3 5 Active Active Problems Problem Noted Date Diagnosed Date Other dietary vitamin B12 deficiency anemia 06/18 Microcytic anemia 06/28/2019 Encounters Date Type Department Care Team Description 06/14/2025 External Device Data [facility] ABSTRACTION Provider, Abstract 06/14/2025 External Device Data [facility] ABSTRACTION Provider, Abstract 06/06/2025 External Device Data [facility] ABSTRACTION Provider, Abstract 03/21/2025 External Device Data [facility] ABSTRACTION Provider, Abstract [...] Description 11/15/2025 3:30 PM CDT Office Visit [facility] Oncology and Hematology - [place] [address] [place] [address] [facility] [address] [place] [address] Elie Montgomery MD [address] [place] [address] Health Maintenance Due Date Last Done Comments Pre-Diabetes and Diabetes Screening 1981 DTAP/TDAP/TD VACCINES (1 - Tdap) 2000 HEPATITIS B VACCINES (1 of 3 - 19+ 3-dose series) 2000 HPV/Cotest (21-29) 2002 HPV VACCINES (1 - 3-dose SCDM series) 2008 CERVICAL CANCER SCREENING 2011 HPV/Cotest (30-65) 2011 PAP SMEAR 2011 BREAST CANCER SCREENING 08/28/2024 08/28/2023, 07/29 INFLUENZA VACCINE (#1) 2025 Procedures Procedure Name Priority Date/Time Associated Diagnosis Comments MAMMO DIAGNOSTIC UNI LEFT W OR WO CAD Routine 08/28/2023 1:10 PM SHIPPING TRACK SUPERVISOR Abnormal finding on breast imaging from Last 3 Months or Most Recently Relevant to Health Maintenance Results * MAMMO DIAGNOSTIC UNI LEFT W OR WO CAD (08/28/2023 1:10 PM SHIPPING TRACK SUPERVISOR) Anatomical Region Laterality Modality Breast Left Mammography 08/28/2023 1:10 PM SHIPPING TRACK SUPERVISOR Addenda Addendum by Lizeth Agrawal MD on 09/03/2023 2:07 PM SHIPPING TRACK SUPERVISOR The patient is status post MRI guided [...] Dr. Whaley's office. Impressions 08/28/2023 4:04 PM SHIPPING TRACK SUPERVISOR IMPRESSION: 1. As described above, upon review [...] cyst was performed. Narrative 08/28/2023 4:04 PM SHIPPING TRACK SUPERVISOR VACUUM-ASSISTED CORE BIOPSY OF THE LEFT BREAST UTILIZING MRI GUIDANCE ULTRASOUND-GUIDED RIGHT BREAST ASPIRATION DATE: 08/28/2023 2:07 PM HISTORY: 43-year-old female with history of right breast core needle biopsy on 05/21/2023 demonstrating atypical lobular hyperplasia, lobular carcinoma in situ and complex sclerosing lesion. Outside facility breast MRI from [facility] on 07/07/2023 demonstrated multiple areas of enhancement within the left breast as well as irregular non-mass enhancement at 8:00 in the right breast. Second look mammograms and ultrasound at [facility] on 07/29/2023 demonstrated left breast cysts [...] the right breast was recommended. DICTATION LOCATION: [facility] COMPARISON: 07/29/2023 and older. TECHNIQUE/FINDINGS: Following discussion [...] linear echogenic clip is seen within the [place]-gel. Biopsy of this area was not performed. [...] Insurance [employer] CHOICE POS II Care Teams Hospice Social Worker Relationship Specialty Start Date End Date Waqar Aviles MD PCP - General Family Practice 12/04/21
== END 2025-06-20 11:09 | disposition home or self-care (01) ==
PROVIDERS: Emergency Provider Registered Nurse; PCP Family Medicine
DX: N39.0 Urinary tract infection, site not specified (principal); Z85.3 Personal history of malignant neoplasm of breast
CPT/HCPCS: 81003; 87077; 87086; 87186; 99213; G0463